=== PATIENT | male | born 1950 | race Caucasian/White ===

== ENCOUNTER 2017-02-05 21:15 | Emergency (ER) | payer OTHER ==
[2017-02-05 22:33] LABS: Hematocrit 42 % (42-52); Mean Corpuscular HGB Conc 34 g/dl (31-36); Mean Corpuscular Hemoglobin 32 pg (27-31); Mean Corpuscular Volume 96 fL (80-94); Mean Platelet Volume 8 um3 (7.4-10.4); Red Blood Count 4.34 10^6/ul (4.0-5.4); Red Cell Distribution Width 13 % (10.5-15); White Blood Count 6.6 10^3/ul (3.5-10.8)
--- NOTE | 2017-02-05 22:42 | RAD ---
INDICATION: Cough, shortness of breath, history of CHF. Atrial fibrillation. Asthma. COMPARISON: October 06, [address] TECHNIQUE: Dual energy PA and routine lateral views of the chest were obtained. REPORT: Elevated lung volumes and both mild coarsening and rarefaction of the interstitial markings. No alveolar consolidation, focal pulmonary lesion, pleural effusion, pneumothorax. RIGHT atrial, RIGHT ventricular, and coronary sinus level pacemaker leads. Negative for cardiomegaly. Prominent central pulmonary vasculature with peripheral attenuation concerning for potential pulmonary arterial hypertension. IMPRESSION: Stigmata of probable chronic obstructive pulmonary disease and potential pulmonary arterial hypertension. No acute cardiopulmonary process evident.
[2017-02-05 22:43] LABS: Urine Bacteria Absent (Absent); Urine Bilirubin Negative (Negative); Urine Glucose Negative (Negative); Urine Nitrite Negative (Negative)
[2017-02-05 22:58] LABS: ALT 30 U/L (7-52); AST 24 U/L (13-39); Albumin 3.9 g/dL (3.2-5.2); Alkaline Phosphatase 74 U/L (34-104); Anion Gap 9 mmol/L (2-11); BUN/Creatinine Ratio 16.9 (8-20); Blood Urea Nitrogen 14 mg/dL (6-24); C Reactive Protein < 1.00 mg/L (< 5.00); CO2 Carbon Dioxide 27 mmol/L (22-32); Calcium 8.8 mg/dL (8.6-10.3); Chloride 101 mmol/L (101-111); Creatine Kinase 140 U/L (10-223); EGFR African American 118.5 (>60); EGFR Non-African American 92.1 (>60); Globulin 3.1 g/dL (2-4); Glucose 102 mg/dL (70-100); Lipase 15 U/L (11.0-82.0); Potassium 3.9 mmol/L (3.5-5.0); Sodium 137 mmol/L (133-145)
[2017-02-05 23:06] LABS: Troponin I 0.08 ng/mL (<0.04)
[2017-02-05 23:07] LABS: TSH (Thyroid Stimulating Horm) 0.71 mcIU/mL (0.34-5.60)
[2017-02-05] MEDS ORDERED: Iohexol 350* (CONTRAST) 500 ML MDV IV ONE (23:14)
[2017-02-06 02:06] VITALS: BP 124/82
[2017-02-06] MEDS ORDERED: predniSONE TAB* 20 MG PO ONE (02:10)
--- NOTE | 2017-02-06 02:22 | ED ---
IRiaz,Medardo, scribed for Kris Mendez MD on 02/05/17 at 2158 . Shortness of Breath - HPI Summary HPI Summary: This 66 y/o male presents to ED for persistent SOB today. Pt reports dyspnea that he has been controlling cough and dyspnea with cough medication BID and albuterol puffer for the last 2-3 days. Pt reports worsening SOB after dinner at 1800 PM today. Positive scant sputum production. Negative CP. Daughters present at bedside expresses concern about mild edema at BLE and possible fluid retention. PMHx includes LBBB, afib s/p dual pacemaker placement, HTN, and asthma. - History of Current Complaint Chief Complaint: EDShortnessOfBreath Hx Obtained From: Patient, Medical Records Onset/Duration: Gradual Onset, Still Present Timing: Constant Dyspnea At: Rest Aggrevating Factors: Nothing Alleviating Factors: OTC Meds - cough medication Associated Signs & Symptoms: Cough (Productive) - scant sputum production, Edema - Allergy/Home Medications Allergies/Adverse Reactions: Allergies Allergy/AdvReac Type Severity Reaction Status Date / Time No Known Allergies Allergy Verified 10/06/14 20:16 PMH/Surg Hx/FS Hx/Imm Hx Cardiovascular History: Reports: Hx Atrial Fibrillation, Hx Hypercholesterolemia , Hx Hypertension Respiratory History: Reports: Hx Asthma Infectious Disease History: No Infectious Disease History: Denies: Traveled Outside the [place] in Last 30 Days - Family History Known Family History: Positive: Cardiac Disease - CHF to father in 80s. , Diabetes - positive to mother - Social History Lives: Alone Alcohol Use: Occasionally Hx Substance Use: No Substance Use Type: Reports: None Hx Tobacco Use: No Smoking Status (MU): Never Smoked Tobacco Review of Systems Negative: Fever Negative: Chest Pain Positive: Shortness Of Breath Positive: Diarrhea Positive: Edema - mild BLE Negative: Anxious, Depressed All Other Systems Reviewed And Are Negative: Yes Physical Exam Triage Information Reviewed: Yes Vital Signs On Initial Exam: Initial Vitals Temp Pulse Resp BP Pulse Ox 98.7 F 69 16 136/92 100 02/05/17 21:27 02/05/17 21:27 02/05/17 21:27 02/05/17 21:27 02/05/17 21:27 Vital Signs Reviewed: Yes Appearance: Positive: Well-Appearing, No Pain Distress Skin: Positive: Warm, Skin Color Reflects Adequate Perfusion, Dry Head/Face: Positive: Normal Head/Face Inspection Eyes: Positive: EOMI, DEANA Neck: Positive: Supple, Nontender Respiratory/Lung Sounds: Positive: Wheezes - expiratory whezzing Cardiovascular: Positive: Leg Edema Left - pitting edema, Leg Edema Right - pitting edema Abdomen Description: Positive: Nontender, No Organomegaly, Soft Musculoskeletal: Positive: Strength/ROM Intact Neurological: Positive: Sensory/Motor Intact, Alert, Oriented to Person Place, Time Psychiatric: Positive: Affect/Mood Appropriate AVPU Assessment: Alert Diagnostics - Vital Signs Vital Signs Temp Pulse Resp BP Pulse Ox 02/05/17 21:27 98.7 F 69 16 136/92 100 - Laboratory Lab Results: Lab Results 02/05/17 02/05/17 02/05/17 Range/Units 22:06 22:15 22:15 WBC 6.6 (3.5-10.8) 10^3/ul RBC 4.34 (4.0-5.4) 10^6/ul Hgb 14.0 (14.0-18.0) g/dl Hct 42 (42-52) % MCV 96 H (80-94) fL MCH 32 H (27-31) pg MCHC 34 (31-36) g/dl RDW 13 (10.5-15) % Plt Count 140 L (150-450) 10^3/ul MPV 8 (7.4-10.4) um3 Neut % (Auto) 69.0 (38-83) % Lymph % (Auto) 18.5 L (25-47) % [place] % (Auto) 7.4 (1-9) % Eos % (Auto) 4.4 (0-6) % Baso % (Auto) 0.7 (0-2) % Absolute Neuts (auto) 4.5 (1.5-7.7) 10^3/ul Absolute Lymphs (auto) 1.2 (1.0-4.8) 10^3/ul Absolute Monos (auto) 0.5 (0-0.8) 10^3/ul Absolute Eos (auto) 0.3 (0-0.6) 10^3/ul Absolute Basos (auto) 0 (0-0.2) 10^3/ul Absolute Nucleated RBC 0 10^3/ul Nucleated RBC % 0.1 INR (Anticoag Therapy) 3.17 H (0.89-1.11) APTT 42.9 H (26.0-36.3) seconds D-Dimer, Quantitative 365 H (Less Than 230) ng/mL Sodium (133-145) mmol/L Potassium (3.5-5.0) mmol/L Chloride (101-111) mmol/L Carbon Dioxide (22-32) mmol/L Anion Gap (2-11) mmol/L BUN (6-24) mg/dL Creatinine (0.67-1.17) mg/dL Est GFR ( Amer) (>60) Est GFR (Non-Af Amer) (>60) BUN/Creatinine Ratio (8-20) Glucose (70-100) mg/dL Lactic Acid (0.5-2.0) mmol/L Calcium (8.6-10.3) mg/dL Magnesium (1.9-2.7) mg/dL Total Bilirubin (0.2-1.0) mg/dL AST (13-39) U/L ALT (7-52) U/L Alkaline Phosphatase (34-104) U/L Total Creatine Kinase (10-223) U/L CK-MB (CK-2) (0.6-6.3) ng/mL Troponin I (<0.04) ng/mL C-Reactive Protein (< 5.00) mg/L B-Natriuretic Peptide ( - 100) pg/mL Total Protein (6.4-8.9) g/dL Albumin (3.2-5.2) g/dL Globulin (2-4) g/dL Albumin/Globulin Ratio (1-3) Lipase (11.0-82.0) U/L TSH (0.34-5.60) mcIU/mL Urine Color Straw Urine Appearance Clear Urine pH 5.0 (5-9) Ur Specific [place] 1.010 (1.010-1.030) Urine Protein Negative (Negative) Urine Ketones Negative (Negative) Urine Blood 2+ H (Negative) Urine Nitrate Negative (Negative) Urine Bilirubin Negative (Negative) Urine Urobilinogen Negative (Negative) Ur Leukocyte Esterase Negative (Negative) Urine WBC (Auto) Trace(0-5/hpf) (Absent) Urine RBC (Auto) Trace(0-2/hpf) (Absent) Urine Bacteria Absent (Absent) Urine Glucose Negative (Negative) 03/19/17 03/19/17 03/19/17 Range/Units 22:15 22:15 22:15 WBC (3.5-10.8) 10^3/ul RBC (4.0-5.4) 10^6/ul Hgb (14.0-18.0) g/dl Hct (42-52) % MCV (80-94) fL MCH (27-31) pg MCHC (31-36) g/dl RDW (10.5-15) % Plt Count (150-450) 10^3/ul MPV (7.4-10.4) um3 Neut % (Auto) (38-83) % Lymph % (Auto) (25-47) % [place] % (Auto) (1-9) % Eos % (Auto) (0-6) % Baso % (Auto) (0-2) % Absolute Neuts (auto) (1.5-7.7) 10^3/ul Absolute Lymphs (auto) (1.0-4.8) 10^3/ul Absolute Monos (auto) (0-0.8) 10^3/ul Absolute Eos (auto) (0-0.6) 10^3/ul Absolute Basos (auto) (0-0.2) 10^3/ul Absolute Nucleated RBC 10^3/ul Nucleated RBC % INR (Anticoag Therapy) (0.89-1.11) APTT (26.0-36.3) seconds D-Dimer, Quantitative (Less Than 230) ng/mL Sodium 137 (133-145) mmol/L Potassium 3.9 (3.5-5.0) mmol/L Chloride 101 (101-111) mmol/L Carbon Dioxide 27 (22-32) mmol/L Anion Gap 9 (2-11) mmol/L BUN 14 (6-24) mg/dL Creatinine 0.83 (0.67-1.17) mg/dL Est GFR ( Amer) 118.5 (>60) Est GFR (Non-Af Amer) 92.1 (>60) BUN/Creatinine Ratio 16.9 (8-20) Glucose 102 H (70-100) mg/dL Lactic Acid 0.9 (0.5-2.0) mmol/L Calcium 8.8 (8.6-10.3) mg/dL Magnesium 2.0 (1.9-2.7) mg/dL Total Bilirubin 0.60 (0.2-1.0) mg/dL AST 24 (13-39) U/L ALT 30 (7-52) U/L Alkaline Phosphatase 74 (34-104) U/L Total Creatine Kinase 140 (10-223) U/L CK-MB (CK-2) 3.7 (0.6-6.3) ng/mL Troponin I 0.08 H* (<0.04) ng/mL C-Reactive Protein < 1.00 (< 5.00) mg/L B-Natriuretic Peptide 37 ( - 100) pg/mL Total Protein 7.0 (6.4-8.9) g/dL Albumin 3.9 (3.2-5.2) g/dL Globulin 3.1 (2-4) g/dL Albumin/Globulin Ratio 1.3 (1-3) Lipase 15 (11.0-82.0) U/L TSH 0.71 (0.34-5.60) mcIU/mL Urine Color Urine Appearance Urine pH (5-9) Ur Specific [place] (1.010-1.030) Urine Protein (Negative) Urine Ketones (Negative) Urine Blood (Negative) Urine Nitrate (Negative) Urine Bilirubin (Negative) Urine Urobilinogen (Negative) Ur Leukocyte Esterase (Negative) Urine WBC (Auto) (Absent) Urine RBC (Auto) (Absent) Urine Bacteria (Absent) Urine Glucose (Negative) 02/06/ Range/Units 01:20 WBC (3.5-10.8) 10^3/ul RBC (4.0-5.4) 10^6/ul Hgb (14.0-18.0) g/dl Hct (42-52) % MCV (80-94) fL MCH (27-31) pg MCHC (31-36) g/dl RDW (10.5-15) % Plt Count (150-450) 10^3/ul MPV (7.4-10.4) um3 Neut % (Auto) (38-83) % Lymph % (Auto) (25-47) % [place] % (Auto) (1-9) % Eos % (Auto) (0-6) % Baso % (Auto) (0-2) % Absolute Neuts (auto) (1.5-7.7) 10^3/ul Absolute Lymphs (auto) (1.0-4.8) 10^3/ul Absolute Monos (auto) (0-0.8) 10^3/ul Absolute Eos (auto) (0-0.6) 10^3/ul Absolute Basos (auto) (0-0.2) 10^3/ul Absolute Nucleated RBC 10^3/ul Nucleated RBC % INR (Anticoag Therapy) (0.89-1.11) APTT (26.0-36.3) seconds D-Dimer, Quantitative (Less Than 230) ng/mL Sodium (133-145) mmol/L Potassium (3.5-5.0) mmol/L Chloride (101-111) mmol/L Carbon Dioxide (22-32) mmol/L Anion Gap (2-11) mmol/L BUN (6-24) mg/dL Creatinine (0.67-1.17) mg/dL Est GFR ( Amer) (>60) Est GFR (Non-Af Amer) (>60) BUN/Creatinine Ratio (8-20) Glucose (70-100) mg/dL Lactic Acid (0.5-2.0) mmol/L Calcium (8.6-10.3) mg/dL Magnesium (1.9-2.7) mg/dL Total Bilirubin (0.2-1.0) mg/dL AST (13-39) U/L ALT (7-52) U/L Alkaline Phosphatase (34-104) U/L Total Creatine Kinase (10-223) U/L CK-MB (CK-2) (0.6-6.3) ng/mL Troponin I 0.09 H* (<0.04) ng/mL C-Reactive Protein (< 5.00) mg/L B-Natriuretic Peptide ( - 100) pg/mL Total Protein (6.4-8.9) g/dL Albumin (3.2-5.2) g/dL Globulin (2-4) g/dL Albumin/Globulin Ratio (1-3) Lipase (11.0-82.0) U/L TSH (0.34-5.60) mcIU/mL Urine Color Urine Appearance Urine pH (5-9) Ur Specific [place] (1.010-1.030) Urine Protein (Negative) Urine Ketones (Negative) Urine Blood (Negative) Urine Nitrate (Negative) Urine Bilirubin (Negative) Urine Urobilinogen (Negative) Ur Leukocyte Esterase (Negative) Urine WBC (Auto) (Absent) Urine RBC (Auto) (Absent) Urine Bacteria (Absent) Urine Glucose (Negative) Result Diagrams: 02/05/17 22:15 02/05/17 22:15 Lab Statement: Any lab studies that have been ordered have been reviewed, and results considered in the medical decision making process. - Radiology CXR Xray Interpretation: No Acute Changes - Stigmata of probable chronic obstructive pulmonary disease and potential pulmonary arterial hypertension. No acute cardiopulmonary process evident. Radiology Interpretation Completed By: Radiologist - CT CTA Chest/Thorax CT Interpretation: No Acute Changes CT Interpretation Completed By: Radiologist - Additional Comments Diagnostic Additional Comments: Venous Doppler study -- No DVT in LLE. Re-Evaluation - Re-Evaluation First Eval Re-Evaluation Time: 00:59 Comment: MD in room to update pt on CTA chest/thorax, venous doppler study, and bloodwork results. Second Eval Re-Evaluation Time: 02:06 Comment: MD in room to update pt on repeat trop and discuss plan of care. Course/Dx - Course Assessment/Plan: WHEEZES ON EXAM. RX PREDNISONE. TROPONIN 0.08 WITH REPEAT OF 0.09. PATIENT STATES HIS SOB EPISODE TONIGHT DID NOT RESPOND TO HIS ALBUTEROL INHALER BYT, GOT BETTER WITH EMS NEBULIZER. DISCUSSED RESULTS AND ADMISSION TO [facility] VERSES DISCHARGE HOME AND F/U WITH HIS ACRDIOLOGIST. 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 WILL RETURN IF WORSE. DISCHARGE HOME STABLE. - Diagnoses Provider Diagnoses: COPD (chronic obstructive pulmonary disease), Dyspnea Discharge - Discharge Plan Condition: Stable Disposition: HOME Prescriptions: predniSONE TAB* [Deltasone TAB*] 40 mg PO DAILY #8 tab Patient Education Materials: COPD (Chronic Obstructive Pulmonary Disease) (ED) , Dyspnea (ED) Referrals: Duane Farmer MD [Primary Care Provider] - Additional Instructions: FOLLOW UP WITH YOUR DOCTOR. CALL TODAY FOR FOLLOW UP. TAKE THE PREDNISONE DIRECTED. RETURN TO THE EMERGENCY DEPARTMENT FOR ANY WORSENING OF YOUR CONDITION; CHEST PAIN, SHORTNESS OF BREATH, YOU FEEL ILL OR QUESTIONS OR CONCERNS. The documentation as recorded by the Riaz hernández Soohyun accurately reflects the service I personally performed and the decisions made by me, Kris Mendez MD.
--- NOTE | 2017-02-06 07:30 | RAD ---
HISTORY: Shortness of breath, positive d-dimer COMPARISONS: None TECHNIQUE: Multiple contiguous axial CT scans of the chest were obtained after the administration of nonionic intravenous contrast, timed to the pulmonary arterial phase of contrast enhancement.. Coronal and sagittal multiplanar reformations are also submitted for review. FINDINGS: NECK AND THYROID: The lower neck and thyroid are unremarkable. CHEST WALL: There is no lower cervical, axillary, or supraclavicular lymphadenopathy by size criteria. HEART AND PERICARDIUM: The heart is unremarkable. AORTA AND PULMONARY VASCULATURE: There is no pulmonary arterial filling defect to suggest pulmonary embolism. There is no linear filling defect within the aorta to suggest aortic dissection. MEDIASTINUM: There is no mediastinal lymphadenopathy by size criteria. RADHA: There is no hilar lymphadenopathy by size criteria. AIRWAY AND ESOPHAGUS: The airway is unremarkable, without endobronchial filling defect. The esophagus is grossly normal. LUNG PARENCHYMA: The lungs are clear. PLEURA: No pleural abnormalities are noted. UPPER ABDOMEN: The upper abdomen is unremarkable. BONES AND SOFT TISSUES: Mild degenerative changes are noted OTHER: A left-sided pacemaker is noted. IMPRESSION: NO PULMONARY ARTERIAL FILLING DEFECT TO SUGGEST PULMONARY EMBOLISM
--- NOTE | 2017-02-06 07:31 | RAD ---
HISTORY: Left lower extremity pain COMPARISONS: None relevant TECHNIQUE: Multiple transverse and longitudinal ultrasound images were obtained of the left lower extremity from the level of the common femoral vein inferiorly through to the infrapopliteal veins using grayscale, color Doppler, and spectral Doppler imaging with and without compression and with augmentation. Comparison images were obtained of the contralateral common femoral vein. FINDINGS: VEINS: The venous system of the left lower extremity is compressible throughout its course, with normal flow on color Doppler imaging and normal response to augmentation on spectral Doppler imaging. SOFT TISSUES: Unremarkable. OTHER FINDINGS: None. IMPRESSION: NO LEFT LOWER EXTREMITY DEEP VEIN THROMBOSIS
== END 2017-02-06 02:28 | disposition home or self-care (01) ==
LOC: ED 21:15
DX: J44.9 Chronic obstructive pulmonary disease, unspecified (principal); R05 Cough; R06.02 Shortness of breath; R19.7 Diarrhea, unspecified; R60.0 Localized edema; R06.00 Dyspnea, unspecified
CPT/HCPCS: 36415; 71020; 71275; 80053; 81003; 81015; 82550; 82553; 83605; 83690; 83735; 83880; 84443; 84484; 85025; 85379; 85610; 85730; 86140; 99283; J7512; Q9967

== ENCOUNTER 2019-05-08 15:32 | Emergency (ER) | payer MEDICARE ==
--- NOTE | 2019-05-08 17:16 | ED ---
HPI Cardiac - HPI Summary HPI Summary: This patient is a 68 year old M presenting to [facility] accompanied by his with a chief complaint of _ since _ The CC is described as _ The patient rates the pain _/10 in severity. Symptoms aggravated by _. Symptoms alleviated by _. Patient reports Patient denies PMHx of - History of Current Complaint Chief Complaint: EDDysrhythmPalp Stated Complaint: DIFBULATOR GOING OFF PER PT Time Seen by Provider: 05/08/19 17:01 Pain Intensity: 0 - Allergy/Home Medications Allergies/Adverse Reactions: Allergies Allergy/AdvReac Type Severity Reaction Status Date / Time No Known Allergies Allergy Verified 05/08/19 15:40 Home Medications: Home Medications Atorvastatin* [Lipitor*] 40 mg PO QPM 05/08/19 [History Confirmed 05/08/19] Budesonide/Formote 80/4.5(NF) [Symbicort 80/4.5 (NF)] 1 puff INH BID 05/08/19 [ History Confirmed 05/08/19] Finasteride TAB* [Proscar TAB*] 5 mg PO DAILY 05/08/19 [History Confirmed ] Metoprolol Succinate 100 mg PO DAILY 05/08/19 [History Confirmed 05/08/19] Ramipril 5 mg PO DAILY 05/08/19 [History Confirmed 05/08/19] Tamsulosin CAP* [Flomax CAP*] 0.4 mg PO DAILY 05/08/19 [History Confirmed ] Warfarin Sodium [Jantoven] 2.5 mg PO DAILY 05/08/19 [History Confirmed 05/08/19] PMH/Surg Hx/FS Hx/Imm Hx Endocrine/Hematology History: Denies: Hx Diabetes Cardiovascular History: Reports: Hx Atrial Fibrillation, Hx Hypercholesterolemia , Hx Hypertension, Hx Pacemaker/ICD Respiratory History: Reports: Hx Asthma History: Denies: Hx Dialysis, Hx Renal Disease - Surgical History Surgery Procedure, Year, and Place: CARDIAC-defib 04/2016, appendectomy,tonsils - Immunization History Immunizations Up to Date: Yes Infectious Disease History: No Infectious Disease History: Denies: Traveled Outside the [place] in Last 30 Days - Family History Known Family History: Positive: Cardiac Disease - CHF to father in 80s. , Diabetes - positive to mother - Social History Alcohol Use: Occasionally Hx Substance Use: No Substance Use Type: Reports: None Hx Tobacco Use: No Smoking Status (MU): Never Smoked Tobacco Physical Exam Vital Signs On Initial Exam: Initial Vitals Temp Pulse Resp BP Pulse Ox 97.9 F 121 18 111/80 94 05/08/19 15:37 05/08/19 15:37 05/08/19 15:37 05/08/19 15:37 05/08/19 15:37 Diagnostics - Vital Signs Vital Signs Temp Pulse Resp BP Pulse Ox 05/08/19 15:37 97.9 F 121 18 111/80 94 - Laboratory Lab Statement: Any lab studies that have been ordered have been reviewed, and results considered in the medical decision making process. Discharge - Discharge Plan Referrals: Duane Farmer MD [Primary Care Provider] - - Attestation Statements Document Initiated by Scribe: Yes
--- NOTE | 2019-05-08 17:20 | ED ---
Palpitations / Dysrhythmia - HPI Summary HPI Summary: This patient is a 68 year old M presenting to [facility] accompanied by his with a chief complaint of his defibrillator/pacemaker turning off since a few hours ago. The patient rates the pain 0/10 in severity. Symptoms aggravated by nothing. Symptoms alleviated by nothing. The patient was exercising on an elliptical today when his implanted defibrillator went off twice. Following this , the patient lied down on his bed. He and his called Dr. Pro, who told the patient to go to the ED. Patient has a history of a-fib. Patient denies dizziness, SOB, CP. He will see his personal development coach next week. - History of Current Complaint Chief Complaint: EDDysrhythmPalp Time Seen by Provider: 05/08/19 17:01 Hx Obtained From: Patient, Family/Bag Liner - Onset/Duration: Sudden Onset, Lasting Hours, Still Present Severity Currently: None Character: Irregular Aggravating: Nothing Alleviating: Nothing - Allergy/Home Medications Allergies/Adverse Reactions: Allergies Allergy/AdvReac Type Severity Reaction Status Date / Time No Known Allergies Allergy Verified 05/08/19 15:40 Home Medications: Home Medications Atorvastatin* [Lipitor*] 40 mg PO QPM 05/08/19 [History Confirmed 05/08/19] Budesonide/Formote 80/4.5(NF) [Symbicort 80/4.5 (NF)] 1 puff INH BID 05/08/19 [ History Confirmed 05/08/19] Finasteride TAB* [Proscar TAB*] 5 mg PO DAILY 05/08/19 [History Confirmed ] Metoprolol Succinate 100 mg PO DAILY 05/08/19 [History Confirmed 05/08/19] Ramipril 5 mg PO DAILY 05/08/19 [History Confirmed 05/08/19] Tamsulosin CAP* [Flomax CAP*] 0.4 mg PO DAILY 05/08/19 [History Confirmed ] Warfarin Sodium [Jantoven] 2.5 mg PO DAILY 05/08/19 [History Confirmed 05/08/19] PMH/Surg Hx/FS Hx/Imm Hx Previously Healthy: No Endocrine/Hematology History: Denies: Hx Diabetes Cardiovascular History: Reports: Hx Atrial Fibrillation, Hx Hypercholesterolemia , Hx Hypertension, Hx Pacemaker/ICD Respiratory History: Reports: Hx Asthma History: Denies: Hx Dialysis, Hx Renal Disease - Surgical History Surgical History: Yes Surgery Procedure, Year, and Place: CARDIAC-defib 04/2016, appendectomy,tonsils - Immunization History Immunizations Up to Date: Yes Infectious Disease History: No Infectious Disease History: Denies: Traveled Outside the [place] in Last 30 Days - Family History Known Family History: Positive: Cardiac Disease - CHF to father in 80s. , Diabetes - positive to mother - Social History Alcohol Use: Occasionally Hx Substance Use: No Substance Use Type: Reports: None Hx Tobacco Use: No Smoking Status (MU): Never Smoked Tobacco Do You Chew or Dip Tobacco: No Have You Chewed or Dipped Tobacco in the LAST YEAR: No Have You Smoked in the Last Year: No Review of Systems Cardiovascular: Other - defibrillator turning off Negative: Chest Pain Negative: Shortness Of Breath Neurological: Other - negative - dizziness All Other Systems Reviewed And Are Negative: Yes Physical Exam - Summary Physical Exam Summary: VITAL SIGNS: Reviewed. GENERAL: Patient is a well-developed and nourished MALE who is lying comfortable in the stretcher. Patient is not in any acute respiratory distress. HEAD AND FACE: No signs of trauma. No ecchymosis, hematomas or skull depressions. No sinus tenderness. EYES: PERRLA, EOMI x 2, No injected conjunctiva, no nystagmus. EARS: Hearing grossly intact. Ear canals and tympanic membranes are within normal limits. MOUTH: Oropharynx within normal limits. NECK: Supple, trachea is midline, no adenopathy, no JVD, no carotid bruit, no c- spine tenderness, neck with full ROM. CHEST: Symmetric, no tenderness at palpation LUNGS: Clear to auscultation bilaterally. No wheezing or crackles. CVS: Regular rate and rhythm, S1 and S2 present, no murmurs or gallops appreciated. ABDOMEN: Soft, non-tender. No signs of distention. No rebound no guarding, and no masses palpated. Bowel sounds are normal. EXTREMITIES: FROM in all major joints, no edema, no cyanosis or clubbing. NEURO: Alert and oriented x 3. No acute neurological deficits. Speech is normal and follows commands. SKIN: Dry and warm. Triage Information Reviewed: Yes Vital Signs On Initial Exam: Initial Vitals Temp Pulse Resp BP Pulse Ox 97.9 F 121 18 111/80 94 06/19/19 15:37 05/08/19 15:37 05/08/19 15:37 05/08/19 15:37 05/08/19 15:37 Vital Signs Reviewed: Yes Diagnostics - Vital Signs Vital Signs Temp Pulse Resp BP Pulse Ox 05/08/19 15:37 97.9 F 121 18 111/80 94 - Laboratory Result Diagrams: 05/08/19 17:33 05/08/19 17:33 Lab Statement: Any lab studies that have been ordered have been reviewed, and results considered in the medical decision making process. - Radiology CXR Radiology Interpretation Completed By: Radiologist Summary of Radiographic Findings: No radiographic evidence for acute cardiopulmonary abnormality on this portable chest x-ray. ED physician has reviewed this radiology report. - EKG 1755 Cardiac Rate: Tachycardia - 120 BPM Summary of EKG Findings: 1755 - pacemaker rhythm, 120 BPM Course/Dx - Course Assessment/Plan: This patient is a 68 year old M presenting to [facility] accompanied by his with a chief complaint of his defibrillator/pacemaker turning off since a few hours ago. The patient rates the pain 0/10 in severity. Symptoms aggravated by nothing. Symptoms alleviated by nothing. The patient was exercising on an elliptical today when his implanted defibrillator went off twice. Following this, the patient lied down on his bed. He and his called Dr. Pro, who told the patient to go to the ED. Patient has a history of a- fib. Patient denies dizziness, SOB, CP. He will see his personal development coach next week. Past medical history significant for atrial fibrillation on Coumadin, hypertension, dyslipidemia, and BPH. In the ED course the patient was placed in a monitor worker, IV access obtained, labs and a chest x-ray was ordered. Blood work without any significant abnormality except for platelets of 122, glucose of 103, CPK of 47. CXR IMPRESSION: No radiographic evidence for acute cardiopulmonary abnormality on this portable chest x-ray. Patient is resting comfortably with no complaints. At this time we are waiting for the interrogation therefore the patient will be signed out to Dr. Encinas at shift change. - Diagnoses Provider Diagnoses: Defibrillator discharge Discharge - Sign-Out/Discharge Documenting (check all that apply): Sign-Out Patient Signing out patient TO: Vernon Encinas - Patient is a sign-out at shift change pending workup for defibrillator and disposition. Patient Received Moderate/Deep Sedation with Procedure: No - Discharge Plan Condition: Stable Disposition: HOME Patient Education Materials: Tachycardia (ED) Referrals: Daniele Gorman MD [Medical Doctor] - Duane Farmer MD [Primary Care Provider] - () Additional Instructions: Increase metoprolol to 150mg instead of 100mg. Dr. Gorman's nurse will contact you for appointment next week Return to ED if symptoms reoccur. No exertion, no sports, no gym. - Billing Disposition and Condition Condition: STABLE Disposition: Home - Attestation Statements Document Initiated by Scribe: Yes Documenting Scribe: Washington Christina Provider For Whom Scribe is Documenting (Include Credential): Dr. Mike Pablo MD Scribe Attestation: Washington Griggs scribed for Dr. Mike Pablo MD on 05/11/19 at 0741. Scribe Documentation Reviewed: Yes Provider Attestation: The documentation as recorded by the Washington hernández accurately reflects the service I personally performed and the decisions made by me, Dr. Mike Pablo MD Status of Scribe Document: Viewed
[2019-05-08 17:58] LABS: ABS Eosinophils 0.2 10^3/ul (0-0.6); ABS Lymphocytes 1.3 10^3/ul (1.0-4.8); ABS Monocytes 0.7 10^3/ul (0-0.8); ABS Neutrophils 5.5 10^3/ul (1.5-7.7); Eosinophil % 2.4 %; Hematocrit 46 % (42-52); Hemoglobin 15.3 g/dL (14.0-18.0); Lymphocyte % 16.9 %; Mean Corpuscular HGB Conc 33 g/dL (31-36); Mean Corpuscular Hemoglobin 33 pg (27-31); Mean Corpuscular Volume 98 fL (80-94); Mean Platelet Volume 8.6 fL (7.4-10.4); Platelet Count 122 10^3/uL (150-450); Red Blood Count 4.68 10^6 /uL (4.18-5.48); Red Cell Distribution Width 14 % (10-15); White Blood Count 7.8 10^3/uL (3.5-10.8)
[2019-05-08 18:09] LABS: ALT 36 U/L (7-52); AST 31 U/L (13-39); Albumin 4.1 g/dL (3.2-5.2); Albumin/Globulin Ratio 1.4 (1-3); Alkaline Phosphatase 65 U/L (34-104); Anion Gap 6 mmol/L (2-11); BUN/Creatinine Ratio 16.8 (8-20); Blood Urea Nitrogen 18 mg/dL (6-24); CO2 Carbon Dioxide 28 mmol/L (22-32); Calcium 9.4 mg/dL (8.6-10.3); Chloride 105 mmol/L (101-111); Creatine Kinase 407 U/L (10-223); EGFR African American 82.7 (>60); EGFR Non-African American 68.3 (>60); Glucose 103 mg/dL (70-100); Magnesium 2.1 mg/dL (1.9-2.7); Sodium 139 mmol/L (135-145); Total Protein 7.1 g/dL (6.4-8.9)
[2019-05-08 18:12] LABS: CKMB ng/mL 6.2 ng/mL (0.6-6.3)
[2019-05-08 18:16] LABS: Troponin I 0.05 ng/mL (<0.04)
[2019-05-08 18:48] LABS: Urine Appearance Cloudy; Urine Bacteria Absent (Absent); Urine Bilirubin Negative (Negative); Urine Blood 2+ (Negative); Urine Color Yellow; Urine Glucose Negative (Negative); Urine Ketones Negative (Negative); Urine Nitrite Negative (Negative); Urine Protein Negative (Negative); Urine Red Blood Cell 2+(6-10/hpf) (Absent); Urine Urobilinogen Negative (Negative); Urine White Blood Cell Trace(0-5/hpf) (Absent)
--- NOTE | 2019-05-08 19:09 | ED ---
Progress - Progress Note Progress Note: This patient was signed out from Dr. Pablo to Dr. Encinas upon shift change at 19: 00 05/08/19 pending fixing his defibrillator/pacemaker. Discussed case with Dr. Gorman, who stated that the patient can go home if he wants to go home and his nurse will contact the patient tomorrow to make an appointment next week, and he recommended increasing Lopressor from 100 to 150mg. The patient will be discharged home, was instructed to not exercise and to return to the ED if his symptoms reoccur. He is agreeable with this plan. Re-Evaluation - Re-Evaluation First Eval Re-Evaluation Time: 19:48 Change: Unchanged Comment: Discussed results and plan Course/Dx - Course Course Of Treatment: This patient was signed out from Dr. Pablo to Dr. Encinas upon shift change at 19:00 05/08/19 pending fixing his defibrillator/pacemaker. Discussed case with Dr. Gorman, who stated that the patient can go home if he wants to go home and his nurse will contact the patient tomorrow to make an appointment next week, and he recommended increasing Lopressor from 100 to 150mg. The patient will be discharged home, was instructed to not exercise and to return to the ED if his symptoms reoccur. He is agreeable with this plan. - Diagnoses Provider Diagnoses: Ventricular tachycardia Discharge - Sign-Out/Discharge Documenting (check all that apply): Patient Departure - DC, Receiving Sign-Out Receiving patient FROM: Mike Samy Patient Received Moderate/Deep Sedation with Procedure: No - Discharge Plan Condition: Stable Disposition: HOME Patient Education Materials: Tachycardia (ED) Referrals: Duane Farmer MD [Primary Care Provider] - () Daniele Gorman MD [Medical Doctor] - Additional Instructions: Increase metoprolol to 150mg instead of 100mg. Dr. Gorman's nurse will contact you for appointment next week Return to ED if symptoms reoccur. No exertion, no sports, no gym. - Billing Disposition and Condition Condition: STABLE Disposition: Home - Attestation Statements Document Initiated by Scribe: Yes Documenting Scribe: Alexandre De Souza Provider For Whom Scribe is Documenting (Include Credential): Vernon Encinas MD Scribe Attestation: I, Alexandre De Souza, scribed for Vernon Encinas MD on 05/09/19 at 0637. Scribe Documentation Reviewed: Yes Provider Attestation: The documentation as recorded by the yanibAlexandre flores accurately reflects the service I personally performed and the decisions made by me, Vernon Encinas MD Status of Scribe Document: Viewed Consult Consult: At 20:[address] Gorman, who stated that the patient can go home if he wants to go home and his nurse will contact the patient tomorrow to make an appointment next week, and he recommended increasing Lopressor from 100 to 150mg.
[2019-05-08 19:21] LABS: TSH (Thyroid Stimulating Horm) 0.94 mcIU/mL (0.34-5.60)
[2019-05-08] MEDS ORDERED: Metoprolol Succinate XL TAB* 100 MG PO ONE (19:54)
[2019-05-08] MEDS ORDERED: Metoprolol Tartrate TAB* 50 mg PO ONE (20:03)
[2019-05-08 20:52] LABS: Activated Partial Thrombo Time 48.3 seconds (26.0-38.0); INR 2.91 (0.82-1.09)
[2019-05-08 21:18] VITALS: BP 138/101
== END 2019-05-08 21:15 | disposition home or self-care (01) ==
LOC: ED 15:32
DX: T82.897A Other specified complication of cardiac prosthetic devices, implants and grafts, initial encounter (principal); I48.91 Unspecified atrial fibrillation; I10 Essential (primary) hypertension; Z79.01 Long term (current) use of anticoagulants; Z79.899 Other long term (current) drug therapy
CPT/HCPCS: 36415; 71045; 80053; 81003; 81015; 82550; 82553; 83605; 83735; 84443; 84484; 85025; 85610; 85730; 87086; 93005; 99284; A9270-GY

== ENCOUNTER 2019-12-03 06:26 | Day surgery (SDC) | payer MEDICARE ==
--- OUTSIDE RECORDS SUMMARY | 2019-12-03 06:33 | XMS REPORT | Summary of Care ---
:1950 Author Organization [facility] Address [address] [address] Care Team Providers Name Role Phone MarlenyDuane quesada Primary Care Provider Reason for Visit Reason Comments Follow Up follow up post PVI Encounter Details Date Type Department Care Team Description 10/14/2019 Office Visit [facility] Lennox Pro, PAF (paroxysmal atrial fibrillation) (HCC) (Primary Dx); 1 Justino Moore MD Nonischemic cardiomyopathy; [address] [phone] 1 JUSTINO MOORE Essential hypertension; [phone] [address] [id number] Coronary artery disease involving alturas coronary artery of alturas heart without angina pectoris; [phone] LBBB (left bundle branch block) Allergies Active Allergy Reactions Severity Noted Date Comments Environmental Respiratory Reaction 05/16/2019 Eplerenone Rash 02/28/2017 documented as of this encounter (statuses as of 10/16/2019) Medications Medication Sig Dispensed Refills Start Date End Date Status Multiple Vitamin Take 1 Tab by 0 Active (MULTI-VITAMIN DAILY mouth DAILY. PO) albuterol HFA (PROAIR Take 2 Puffs by 3 Inhaler 0 09/14/2015 Active HFA) 108 (90 BASE) inhalation EVERY MCG/ACT Inhalation Aero SIX HOURS Soln NEEDED (asthma). Tamsulosin HCl (FLOMAX) Take 0.4 mg by 0 Active 0.4 MG Oral Cap mouth DAILY. Spacer/Aero-Holding 1 Each by Does 1 Each 0 08/14/2018 Active Chambers Does not apply not apply route Device DIRECTED. finasteride (PROSCAR) 5 TAKE 1 TABLET 90 Tab 3 11/06/2018 Active MG Oral Tab DAILY atorvastatin (LIPITOR) TAKE 1 TABLET 90 Tab 3 11/28/2018 Active 40 MG Oral DAILY TabIndications: Coronary artery disease involving alturas coronary artery of alturas heart without angina pectoris ramipril (ALTACE) 5 MG Take 1 Cap by 90 Cap 3 04/30/2019 Active Oral Cap mouth DAILY. metoprolol succinate Take 0.5 Tabs by 3 06/13/2019 Active (TOPROL XL) 100 MG Oral mouth TWICE TABLET SR 24 DAILY. HRIndications: NICM (nonischemic cardiomyopathy) (HCC) warfarin (JANTOVEN) 2.5 Take 3-4 Tabs by 280 Tab 3 07/17/2019 Active MG Oral TabIndications: mouth DAILY. 10mg Persistent atrial Mon/Mon/Mon and fibrillation 7.5mg rest of week budesonide-formoterol Take 2 INHL by 30.6 g 1 08/14/2019 Active fumarate (SYMBICORT) inhalation TWICE 80-4.5 MCG/ACT DAILY. Inhalation Aerosol dofetilide (TIKOSYN) Take 1 Cap by 180 Cap 3 08/22/2019 Active 250 MCG Oral mouth EVERY CapIndications: TWELVE HOURS. Paroxysmal atrial fibrillation (HCC) Cholecalciferol Take 2,000 Units 0 Active (VITAMIN D3 PO) by mouth DAILY. documented as of this encounter (statuses as of 10/16/2019) Active Problems Problem Noted Date Decompensated chronic obstructive pulmonary disease 08/14/2018 Chronic systolic heart failure 10/27/2016 PAF (paroxysmal atrial fibrillation) 10/24/2016 Essential hypertension 10/24/2016 Persistent atrial fibrillation 05/26/2016 senior living current use of anticoagulant therapy 05/26/2016 Overview: Managed by: to establish with [facility] 05/27/16 Anticoagulant: Warfarin Start of Anticoagulant: 05/26/16 Referred by: Yris Indication: Afib Target Range: 2.0-3.0 Duration: Not Determined Additional factors influencing anticoagulation: CHADS2 score of 2 for hypertension, LV dysfunction [id number] score of 3 for age > 65, hypertension, LV dysfunction Aspirin increases bleeding risk Spironolactone decreases warfarin effect Initial Referral: 05/26/16, 06/2017, 08/2018 Initial ACS: 05/26/16, 08/16/17, 09/17/18 Nonischemic cardiomyopathy 03/09/2016 Coronary artery disease involving alturas coronary artery of alturas heart 09/07 without angina pectoris Overview: Nonobstructive by cath in [place] 2008 (30% prox LAD, 40-50% PL). LBBB (left bundle branch block) A-fib Overview: Dx in [place] but told not to worry about it Other and unspecified hyperlipidemia Hypertension documented as of this encounter (statuses as of 10/16/2019) Immunizations Name Administration Dates Next Due PNEUMOCOCCAL POLYSACCHARIDE VACCINE 08/14/2018 Pneumococcal Conjugate Vaccine 07/31/2017 documented as of this encounter Social History Tobacco Use Types Packs/Day Years Used Date Never Smoker Smokeless Tobacco: Never Used Alcohol Use Drinks/Week oz/Week Comments Yes 2 Cans of beer 2.0 occasional Sex Assigned at Date Recorded Not on file Job Start Date Occupation Industry Not on file Not on file Not on file Travel History Travel Start Travel End No recent travel history available. documented as of this encounter Last Filed Vital Signs Vital Sign Reading Time Taken Comments Blood Pressure 120/72 10/14/2019 3:07 PM EST Pulse 70 10/14/2019 3:07 PM EST Temperature - - Respiratory Rate - - Oxygen Saturation - - Inhaled Oxygen Concentration - - Weight 99.3 kg (218 lb 14.4 oz) 10/14/2019 3:07 PM EST Height 175.3 cm (5' 9") 10/14/2019 3:07 PM EST Body Mass Index 32.33 10/14/2019 3:07 PM EST documented in this encounter Progress Notes Scooby Garibay MD - 10/14/2019 2:40 PM EST PATIENT: Kris Dias : 1950 DATE OF SERVICE: 10/14/2019 REFERRING PRACTITIONER: Self-Referred PRIMARY CARE PROVIDER: Duane Farmer CHIEF COMPLAINT: Chief Complaint Patient presents with Follow Up follow up post PVI HISTORY OF PRESENT ILLNESS: Kris Dias is a 69-y.o. male who returns for cardiological follow-up after his last visit with Dr. Pro. He had his PVI in May 2019 and he has been AF/AFL free (based on most recent recentpacemaker interrogation. He is taking 15-20 brisk walks 3-4 times per week. Denies fatigue, chest pain, n/v, diaphoresis, orthopnea. Mild edema. He is tolerating his Tikosyn but is worried since he was recently notified about a Tikosyn shortage.He and his wonders how long he would need to take the Tikosyn and if another medication needs to be started in case he no longer has access to Tikosyn. Current Outpatient Medications Medication Sig albuterol HFA (PROAIR HFA) 108 (90 BASE) MCG/ACT Inhalation Aero Soln Take 2 Puffs by inhalation EVERY SIX HOURS NEEDED (asthma). atorvastatin (LIPITOR) 40 MG Oral Tab TAKE 1 TABLET DAILY budesonide-formoterol fumarate (SYMBICORT) 80-4.5 MCG/ACT Inhalation Aerosol Take 2 INHL by inhalation TWICE DAILY. Cholecalciferol (VITAMIN D3 PO) Take 2,000 Units by mouth DAILY. dofetilide (TIKOSYN) 250 MCG Oral Cap Take 1 Cap by mouth EVERY TWELVE HOURS. finasteride (PROSCAR) 5 MG Oral Tab TAKE 1 TABLET DAILY metoprolol succinate (TOPROL XL) 100 MG Oral TABLET SR 24 HR Take 0.5 Tabs by mouth TWICE DAILY. Multiple Vitamin (MULTI-VITAMIN DAILY PO) Take 1 Tab by mouth DAILY. ramipril (ALTACE) 5 MG Oral Cap Take 1 Cap by mouth DAILY. Spacer/Aero-Holding Chambers Does not apply Device 1 Each by Does not apply route DIRECTED. Tamsulosin HCl (FLOMAX) 0.4 MG Oral Cap Take 0.4 mg by mouth DAILY. warfarin (JANTOVEN) 2.5 MG Oral Tab Take 3-4 Tabs by mouth DAILY. 10mg Mon/Wed/Fri and 7.5mg rest of week No current facility-administered medications for this visit. Facility-Administered Medications Ordered in Other Visits Medication perflutren lipid microsphere (DEFINBook of Odds) injection 1.5 mL Allergies Allergen Reactions Environmental Respiratory Reaction Eplerenone Rash REVIEW OF SYSTEMS: All remaining review of systems was negative except for as noted in the history of present illness/subjective. PHYSICAL EXAMINATION: VITALS: BP 120/72 (BP Location: Left arm, Patient Position: Sitting) | Pulse 70 | Ht 5' 9" (1.753m) | Wt 218 lb 14.4 oz (99.3 kg) | BMI 32.33 kg/m GENERAL: alert, oriented, no acute distress, appears stated age. SKIN: warm and dry, no xanthomas. and normal, no rashes or abnormalities noted. HEENT: head is atraumatic and normocephalic, mucous membranes moist NECK: no mass, no adenopathy, no thyromegaly and no jugular venous distention. LUNGS: clear to auscultation bilaterally, no rales, no wheezing, or ronchi. HEART: Normal rate, regular rhythm, normal S1/S2, no murmurs/rubs/gallops, PMI nondisplaced. ABDOMEN: soft, non tender, without masses or organomegaly. EXTREMITIES: no clubbing, cyanosis, or edema, radial and DP pulses 2+ bilaterally. NEUROLOGICAL: grossly intact and moves all extremites well DIAGNOSTIC STUDIES: EKG: AV-paced rhythm IMPRESSION: ICD-9-CM ICD-10-CM 1. PAF (paroxysmal atrial fibrillation) ([facility]) 427.31 I48.0 2. Nonischemic cardiomyopathy 425.4 I42.8 3. Essential hypertension 401.9 I10 4. Coronary artery disease involving alturas coronary artery of alturas heart without angina pectoris 414.01 I25.10 5. LBBB (left bundle branch block) 426.3 I44.7 PLAN: 1. Paroxysmal atrial fibrillation Anticoagulation: Warfarin Rate-control: Toprol XL Rhythm-control: Tikosyn 250 mcg BID Patient has returned to normal sinus rhythm and had 0% AF/AFL burden during most recent pacemaker/ICD interrogation in 07/2019. Plan to continue Tikosyn for the time being. Follow-up in 3-4 months to reassess Tikosyn therapy. 2. Nonischemic cardiomyopathy LVEF: 55-60% on TTE 10/14/2019 Beta-herminia: Toprol XL 50 mg daily ACEi/ARB: Ramipril 5 mg daily Mineralocorticoid antagonist: None Entresto: No LVEF has normalized since PVI in May. This is a significant improvement compared to TTE on March 2019(LVEF 40-45%). 3. CAD 4. Essential hypertension 5. LBBB Author: Scooby Garibay MD 10/14/2019 15:12 documented in this encounter Plan of Treatment Date Type Specialty Care Team Description 10/16/2019 Office Visit Audiology Mikey Driscoll AuD Arrived [address] [id number] 10/16/2019 Office Visit Audiology Mikey Driscoll, [place] Arrived [address] [address] 10/21/2019 Lab Internal Medicine 11/11/2019 AntiCoag Anticoagulation 12/03/2019 [facility] Arrhythmia [facility] 01/14/2020 Office Visit Cardiology Guillermo Colin NP [address] [address] 02/24/2020 Office Visit Cardiology Daniele Gorman MD [address] [place] [address] [phone] 04/02/2020 [facility] Arrhythmia Center Health Maintenance Due Date Last Done Comments HIV SCREENING 1965 ZOSTER IMMUNIZATION SERIES 1998 (1 of 2) MEDICARE ANNUAL WELLNESS 08/14/2019 08/14/2018, 07/31/2017, VISIT 09/02/2015, Additional history exists LIPID DISORDER SCREENING 11/28/2019 11/28/2018, 08/14/2018, 08/30/2017, Additional history exists DEPRESSION SCREENING 10/14/2020 10/14/2019 FALL RISK ASSESSMENT 10/14/2020 10/14/2019, 10/14/2019 INFLUENZA VACCINE (#1) 2020 Postponed from 07/21/2019 (Patient refused) Colonoscopy 10/04/2022 10/04/2017, 10/04/2017, 02/02/2013 PNEUMOCOCCAL 65+YRS Completed 08/14/2018, 07/31/2017 HPV IMMUNIZATION SERIES Aged Out No longer eligible based on patient's age to complete this topic MENINGOCOCCAL VACCINE IMM Aged Out No longer eligible based on patient's age to complete this topic documented as of this encounter Goals Goal Patient Goal Associated Recent Patient-Stated? Author Type Problems Progress Blood Pressure Blood Pressure 120/72 No Marleny, < 150/90 (10/14/2019 MD Duane 3:07 PM EST) Note: This is an individualized treatment (blood pressure) goal for Kris Dias : Displayed above (on the left) is your goal for blood pressure control. Your most recent blood pressure is also shown above, on the right. You should try to achieve blood pressures that are lower than your goal listed above (on the left). Weight increase vs. 18 mo min CHF 4.9 (10/14/2019 3:07 PM EST) No Duane Farmer MD (lbs) < 5 Note: This is an individualized treatment (congestive heart failure, CHF) goal for Kris Dias: Displayed above (on the right) is how many pounds you are in excess of your lowest weight over the past 18 months. Note that lower numbers are better. Excessive weight gain often indicates fluid reten tion and worsening heart failure. You should contact your doctor immediately if the above number is too high (above your goal, the number on the left). Consume a [id number] diet Lifestyle No Duane Farmer MD Note: This is an individualized lifestyle goal for Kris Dias: Please do not add additional salt to your food. Additional salt may lead to fluid retention and worsen your congestive heart failure. Keep immunizations current Lifestyle No Duane Farmer MD Note: This is an individualized lifestyle goal for Kris Dias: Please be sure to keep up-to-date on recommended immunizations. For example, this would include a yearly influenza vaccine. Immunization status can be seen by looking at the Health Maintenance sections of your e[employer], Plan of Care, and any After Visit Summaries. Take all prescribed medications as directed Self-management No Duane Farmer MD Note: This is an individualized self-management goal for Kris Dias: Please take all prescribed medications as directed. 1. Do not skip doses. If you cannot afford your medications, talk with your doctor. 2. Use a pill reminder system such as a pill box if needed. Your pharmacist can help you with this. 3. Contact your Pharmacy 5 days before your medication runs out. If you cannot take your medications for any reasons, talk with your doctor. 4. Please bring all of your medication bottles and inhalers (or a list of all your medications/inhalers) with you to every visit. Potential barriers to meeting all of your care plan goals will continue to be addressed on an ongoing basis. Check your weight daily Self-management Duane Melendze MD Note: This is an individualized self-management goal for Kris Dias: Please check your weight daily. Refer to the accompanying CHF treatment goal and call your doctor immediately for further instructions on how to respond to unexpected weight gain. documented as of this encounter Implants Implanted Type Area Foreign Collection Clerk Device Shelf Model / Identifier Expiration Serial / Date Lot Compia Mri Quad Waste Treatment Operator-D Surescan Left: [employer] [id number] / Implanted: Qty: 1 on 10/26/2016 by Lennox Pro MD at [facility] [id number] / Capsurefix Lead 4076-52cm Left: [employer] 4076-52CM / Implanted: Qty: 1 on 10/26/2016 by Lennox Pro MD at [facility] [id number] / Sprint Quattro Icd Lead 6935m-62cm Left: [employer] [id number] / Implanted: Qty: 1 on 10/26/2016 by Lennox Pro MD at [facility] [id number] / Attain Performa Lead 4598-88cm Left: [employer] [id number] / Implanted: Qty: 1 on 10/26/2016 by Lennox Pro MD at [facility] [id number] / documented as of this encounter Results Not on filedocumented in this encounter Visit Diagnoses Diagnosis PAF (paroxysmal atrial fibrillation) (HCC) - Primary Atrial fibrillation Nonischemic cardiomyopathy Other primary cardiomyopathies Essential hypertension Unspecified essential hypertension Coronary artery disease involving alturas coronary artery of alturas heart without angina pectoris LBBB (left bundle branch block) Other left bundle branch block documented in this encounter Insurance Payer Benefit Plan / Subscriber ID Effective Dates Phone Address Type Group AETNA MEDICARE AETNA MEDICARE xxxxxxxx 2017-Present [employer] ADVANTAGE ADVANTAGE Guarantor Name Account Type Relation to Date of Phone Billing Address Patient Kris Dias Personal/Famil 1950 [address]) [address] [phone] [place], [place] (Work) [id number] documented as of this encounter Advance Directives Code Status Date Activated Date Inactivated Comments Full Code 06/10/2019 1:57 PM Does the patient have decision making Yes capacity? Order was discussed with: Unable to determine at this time I discussed all options and Unable to determine at this time (full patient/surrogate requested and agreed to: code until choice is made and new order placed)
--- OUTSIDE RECORDS SUMMARY | 2019-12-03 06:33 | XMS REPORT | Summary of Care ---
:1950 Author Organization [facility] Address [address] [facility] [place] [address] Care Team Providers Name Role Phone Duane Farmer Primary Care Provider Reason for Visit Reason Comments Follow Up pt presents for follow up Encounter Details Date Type Department Care Team Description 10/14/2019 Office Visit [facility] Duane Farmer MD Essential hypertension (Primary Dx); Practice [address] [facility] Hyperglycemia; [address] [place] [address] [place] [address] [phone] Allergies Active Allergy Reactions Severity Noted Date Comments Environmental Respiratory Reaction 05/16/2019 Eplerenone Rash 02/28/2017 documented as of this encounter (statuses as of 10/14/2019) Medications Medication Sig Dispensed Refills Start Date End Date Status Multiple Vitamin Take 1 Tab by 0 Active (MULTI-VITAMIN DAILY mouth DAILY. PO) albuterol HFA Take 2 Puffs by 3 Inhaler 0 09/14/2015 Active (PROAIR HFA) 108 (90 inhalation BASE) MCG/ACT EVERY SIX HOURS Inhalation Aero Soln NEEDED (asthma). Tamsulosin HCl Take 0.4 mg by 0 Active (FLOMAX) 0.4 MG Oral mouth DAILY. Cap Spacer/Aero-Holding 1 Each by Does 1 Each 0 08/14/2018 Active Chambers Does not not apply route apply Device DIRECTED. finasteride TAKE 1 TABLET 90 Tab 3 11/06/2018 Active (PROSCAR) 5 MG Oral DAILY Tab atorvastatin TAKE 1 TABLET 90 Tab 3 11/28/2018 Active (LIPITOR) 40 MG Oral DAILY TabIndications: Coronary artery disease involving mic[place]ukee coronary artery of mic[place]ukee heart without angina pectoris ramipril (ALTACE) 5 Take 1 Cap by 90 Cap 3 04/30/2019 Active MG Oral Cap mouth DAILY. metoprolol succinate Take 0.5 Tabs 3 06/13/2019 Active (TOPROL XL) 100 MG by mouth TWICE Oral TABLET SR 24 DAILY. HRIndications: NICM (nonischemic cardiomyopathy) (HCC) warfarin (JANTOVEN) Take 3-4 Tabs 280 Tab 3 07/17/2019 Active 2.5 MG Oral by mouth DAILY. TabIndications: 10mg Persistent atrial Mon/Mon/Mon and fibrillation 7.5mg rest of week budesonide-formotero Take 2 INHL by 30.6 g 1 08/14/2019 Active l fumarate inhalation (SYMBICORT) 80-4.5 TWICE DAILY. MCG/ACT Inhalation Aerosol dofetilide (TIKOSYN) Take 1 Cap by 180 Cap 3 08/22/2019 Active 250 MCG Oral mouth EVERY CapIndications: TWELVE HOURS. Paroxysmal atrial fibrillation (HCC) Cholecalciferol Take 2,000 0 Active (VITAMIN D3 PO) Units by mouth DAILY. diclofenac 2 g by Topical 100 g 4 08/14/2018 Discontinued (VOLTAREN) 1 % route TWO TIMES 9 Transdermal Gel DAILY NEEDED (thumb pain). To hands sucralfate Take 1 Tab by 120 Tab 0 05/16/2019 Discontinued (CARAFATE) 1 GM Oral mouth FOUR 9 Tab TIMES DAILY. Dissolve 1 tablet in 2oz of water and take 8a 12p 4p and 8p documented as of this encounter (statuses as of 10/14/2019) Active Problems Problem Noted Date Decompensated chronic obstructive pulmonary disease 08/14/2018 Chronic systolic heart failure 10/27/2016 PAF (paroxysmal atrial fibrillation) 10/24/2016 Essential hypertension 10/24/2016 Persistent atrial fibrillation 05/26/2016 alf current use of anticoagulant therapy 05/26/2016 Overview: Managed by: jean paul establish with [facility] 05/27/16 Anticoagulant: Warfarin Start of Anticoagulant: 05/26/16 Referred by: Yris Indication: Afib Target Range: 2.0-3.0 Duration: Not Determined Additional factors influencing anticoagulation: CHADS2 score of 2 for hypertension, LV dysfunction [id number] score of 3 for age > 65, hypertension, LV dysfunction Aspirin increases bleeding risk Spironolactone decreases warfarin effect Initial Referral: 05/26/16, 06/2017, 08/2018 Initial ACS: 05/26/16, 08/16/17, 09/17/18 Nonischemic cardiomyopathy 03/09/2016 Coronary artery disease involving [place]e coronary artery of [place]e heart 09/07 without angina pectoris Overview: Nonobstructive by cath in [place] 2008 (30% prox LAD, 40-50% PL). LBBB (left bundle branch block) A-fib Overview: Dx in [place] but told not to worry about it Other and unspecified hyperlipidemia Hypertension documented as of this encounter (statuses as of 10/14/2019) Immunizations Name Administration Dates Next Due PNEUMOCOCCAL [...] Sign Reading Time Taken Comments Blood Pressure 100/64 10/14/2019 9:19 AM EST Pulse 69 10/14/2019 9:19 AM EST Temperature - - Respiratory Rate - - Oxygen Saturation 95% 10/14/2019 9:19 AM EST Inhaled Oxygen Concentration - - Weight 98.6 kg (217 lb 6.4 oz) 10/14/2019 9:19 AM EST Height 175.3 cm (5' 9") 10/14/2019 9:19 AM EST Body Mass Index 32.1 10/14/2019 9:19 AM EST documented in this encounter Progress Notes Duane Farmer MD - 10/14/2019 9:20 AM EST PATIENT: Kris Dias : 1950 DATE OF SERVICE: 10/14/2019 CHIEF COMPLAINT: Chief Complaint Patient presents with Follow Up pt presents for follow up Subjective HISTORY OF PRESENT ILLNESS: Kris Dias is a 69-y.o. male. He is happy with his procedure for the heart He not think he is in afib He heard there will be a shortage of tikosyn Memory is fair His doctors include cardiology Sherif and Sharon And Dr Shabazz for urology He voids 1 x a night In for follow up of hypertension. *. no side effects to medicines and denies RAMOS, dizzyness, CP,SOB, edema or neuro symptoms . He only uses albuterol when exposed to fumes but uses symbicort daily Past Medical History: Diagnosis Date A-fib (HCC) 2015 Allergic to animal dander wheeze CAD (coronary artery disease) Diverticulosis 01/2013 5 years Hematuria Hypertension Kidney stone LBBB (left bundle branch block) Non-ischemic cardiomyopathy (HCC) Other and unspecified hyperlipidemia Plantar fasciitis Family History Problem Relation Age of Onset Hypertension Mother Migraines Mother Skin Cancer Father melanoma Colon Cancer Father High Cholesterol Sister Hypertension Sister Alcohol/Drug Brother Migraines Daughter No Known Problems Son No Known Problems Sister No Known Problems Daughter Current Outpatient Medications Medication Sig albuterol HFA [...] No current facility-administered medications for this visit. Allergies Allergen Reactions Environmental Respiratory Reaction Eplerenone Rash Social History Socioeconomic History Marital status: Spouse name: Not on file Number of children: Not on file Years of education: Not on file Highest education level: Not on file Occupational History Not on file Social Needs Financial resource strain: Not on file Food insecurity: Worry: Not on file Inability: Not on file Transportation needs: Medical: Not on file Non-medical: Not on file Tobacco Use Smoking status: Never Smoker Smokeless tobacco: Never Used Substance and Sexual Activity Alcohol use: Yes Alcohol/week: 2.0 standard drinks Types: 2 Cans of beer per week Comment: occasional Drug use: No Sexual activity: Never Lifestyle Physical activity: Days per week: Not on file Minutes per session: Not on file Stress: Not on file Relationships Social connections: Talks on phone: Not on file Gets together: Not on file Attends jainism service: Not on file Active member of club or organization: Not on file Attends meetings of clubs or organizations: Not on file Relationship status: Not on file Intimate partner violence: Fear of current or ex partner: Not on file Emotionally abused: Not on file Physically abused: Not on file Forced sexual activity: Not on file Other Topics Concern Back Care Not Asked Bike Helmet Not Asked Blood Transfusions Not Asked Caffeine Concern Not Asked Exercise Not Asked Hobby Hazards Not Asked International Travel Not Asked Service Not Asked Occupational Exposure Not Asked Seat Belt Not Asked Self-Exams Not Asked Sleep Concern Not Asked Special Diet Not Asked Stress Concern Not Asked Weight Concern Not Asked Social History Narrative 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 Has 2 adult children in the area and several grandchildren. Over the last 2 weeks, have you been feeling down, depressed, anxious, or hopeless?: 0 Over the past 2 weeks, have you felt little interest or pleasure in doing things ?: 0 REVIEW OF SYSTEMS: Review of Systems HENT: Positive for hearing loss (has aides but not like to wear them has a .fu .appt ). Gastrointestinal: Negative for heartburn (was on carafate as a preventative ). Diarrhea: occasional. Musculoskeletal: Voltaren gel not help the thumb Not bother all the time Skin: Sees derm Objective PHYSICAL EXAM: VITALS: BP 100/64 (BP Location: Left arm, Patient Position: Sitting) | Pulse 69 | Ht 5' 9" (1.753m) | Wt 217 lb 6.4 oz (98.6 kg) | SpO2 95% | BMI 32.10 kg/m Body mass index is 32.1 kg/m. Physical Exam HENT: Ears: Comments: Ears - bilateral TM's and external ear canals normal, right external ear normal, left externalear normal Mouth/Throat: Comments: [place] torus Cardiovascular: Rate and Rhythm: Normal rate and regular rhythm. Pulmonary: Effort: Pulmonary effort is normal. No respiratory distress. Breath sounds: Normal breath sounds. Abdominal: Comments: Diastasis recti Musculoskeletal: Right lower leg: No edema. Left lower leg: No edema. Psychiatric: Mood and Affect: Mood normal. ASSESSMENT / IMPRESSION: ICD-9-CM ICD-10-CM 1. Essential hypertensionBP good, no changes 401.9 I10 LIPID PROFILE BASIC METABOLIC PANEL 2. Hyperglycemia make sure not diabetes based on last labs 790.29 R73.9 GLYCOHEMOGLOBIN A1C 3. Memory loss Checking labs but not a head scan or MMSE yet 780.93 R41.3 VITAMIN B12 / FOLATE THYROID STIMULATING HORMONE Plan Author: Duane Farmer MD 10/14/2019 09:32 documented in this encounter Plan of Treatment Date Type Specialty Care Team Description 10/16/2019 Office Visit Audiology Mikey Driscoll, [place] [address] [address] [phone] 10/16/2019 Office Visit Audiology Mikey Driscoll, [facility] [address] [address] [phone] 10/21/2019 Lab Internal Medicine 11/11/2019 AntiCoag Anticoagulation 12/03/2019 [facility] 01/14/2020 Office Visit Cardiology Guillermo Colin NP [address] [address] [phone] 02/24/2020 Office Visit Cardiology Daniele Gorman MD [address] [place] [address] [phone] 04/02/2020 [facility] Name Type Priority Associated Diagnoses Order Schedule LIPID PROFILE Lab Routine Essential hypertension Expected: 10/14/2019 (Approximate), Expires: 10/14/2020 BASIC METABOLIC PANEL Lab Routine Essential hypertension Expected: 2018 (Approximate), Expires: 10/14/2020 GLYCOHEMOGLOBIN A1C Lab Routine Hyperglycemia Expected: 10/14/2019 (Approximate), Expires: 10/14/2020 VITAMIN B12 / FOLATE Lab Routine Memory loss Expected: 10/14/2019 (Approximate), Expires: 10/14/2020 THYROID STIMULATING HORMONE Lab Routine Memory loss Expected: 10/14/2019 (Approximate), Expires: 10/14/2020 Health Maintenance Due Date Last Done Comments [...] the number on the left). Consume a [id number] diet Lifestyle No Duane Farmer MD Note: This is an individualized lifestyle goal for Kris [place] Dias: Please do not add additional salt to your food. Additional salt may lead to fluid retention and worsen your congestive heart failure. Keep immunizations current Lifestyle No Duane Farmer MD Note: This is an individualized lifestyle goal for Kris Gaffneyn: Please be sure to keep up-to-date on [...] ongoing basis. Check your weight daily Self-management No Duane Farmer MD Note: This is an individualized self-management goal for Kris [place] Dias: Please check your weight daily. Refer to the accompanying CHF treatment goal and call your doctor immediately for further instructions on how to respond to unexpected weight gain. documented as of this encounter Implants Implanted Type Area Potato Peeler Device Shelf Model / Identifier Expiration Serial / Date Lot Compia Mri Quad Equipment Operator/Laborer-D Surescan Left: [employer] [id number] / Implanted: Qty: 1 on 10/26/2016 by Lennox Pro MD at [facility] Chest [id number] / Capsurefix Lead 4076-52cm Left: [employer] [id number] / Implanted: Qty: 1 on 10/26/2016 by Lennox Pro MD at [facility] Chest [id number] / Sprint Quattro Icd Lead 6935m-62cm Left: [employer] [id number] / Implanted: Qty: 1 on 10/26/2016 by Lennox Pro MD at [facility] Chest [id number] / Attain Performa Lead 4598-88cm Left: [employer] [id number] / Implanted: Qty: 1 on 10/26/2016 by Lennox Pro MD at [facility] [id number] / documented as of this encounter Results Not on filedocumented in this encounter Visit Diagnoses Diagnosis Essential hypertension - Primary Unspecified essential hypertension Hyperglycemia Other abnormal glucose Memory loss documented in this encounter Insurance Payer Benefit Plan / Subscriber ID Effective Dates Phone Address Type Group AETNA MEDICARE AETNA MEDICARE xxxxxxxx 2017-Present [employer] ADVANTAGE ADVANTAGE Guarantor Name Account Type Relation to Date of Phone Billing Address Patient Kris Dias Personal/Famil 1950 [address] [phone] [place], [place] (Work) [id number] documented as of this encounter Advance Directives [...]
--- OUTSIDE RECORDS SUMMARY | 2019-12-03 06:33 | XMS REPORT | Summary of Care ---
:1950 Author Organization [facility] Address [address] [address] Care Team Providers Name Role Phone Duane Xiao Primary Care Provider Reason for Referral Diagnostic Testing (Routine) Status Reason Specialty Diagnoses / Referred By Referred To Contact Procedures Contact No Precert Cardiology Diagnoses Paroxysmal atrial fibrillation (HCC) NICM (nonischemic cardiomyopathy) (HCC) [facility] Cardiovascular Required Procedures ECHOCARDIOGRAM TTE MD [place] Diagnostic 1 BLANCO 1 [address] [address] [address] [address] Reason for Visit Diagnostic Testing (Routine) Status Reason Specialty Diagnoses / Referred By Referred To Contact Procedures Contact No Precert Cardiology Diagnoses Paroxysmal atrial fibrillation (HCC) NICM (nonischemic cardiomyopathy) ([facility]) [facility] Cardiovascular Required Procedures ECHOCARDIOGRAM TTKym High MD Diagnostic 1 BLANCO 1 BLANCO SQ [address] [address] [address] [address] Encounter Details Date Type Department Care Team Description 10/14/2019 Hospital Encounter [facility] CARDIOVASCULAR DIAGNOSTIC Outpatient [address] [id number] Allergies Active Allergy Reactions Severity Noted Date [...] Oral DAILY TabIndications: Coronary artery disease involving [place] coronary artery of [place] heart without angina pectoris ramipril (ALTACE) 5 [...] Oral TabIndications: mouth DAILY. 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 current use of anticoagulant therapy 05/26/2016 Overview: Managed by: to establish with [facility] 05/27/16 Anticoagulant: Warfarin Start of Anticoagulant: 05/26/16 Referred by: Yris Indication: Afib Target Range: 2.0-3.0 Duration: Not Determined Additional factors influencing anticoagulation: CHADS2 score of 2 for hypertension, LV dysfunction [id number] score of 3 for age > 65, hypertension, LV dysfunction Aspirin increases bleeding risk Spironolactone decreases warfarin effect Initial Referral: 05/26/16, 06/2017, 08/2018 Initial ACS: 05/26/16, 08/16/17, 09/17/18 Nonischemic cardiomyopathy 03/09/2016 Coronary artery disease involving [place] coronary artery of [place] heart 09/07 without angina pectoris Overview: Nonobstructive by cath in [place] 2007 (30% prox LAD, 40-50% PL). LBBB (left bundle branch block) A-fib Overview: Dx in [place] but told not to worry about it [...] of this encounter Last Filed Vital Signs Not on filedocumented in this encounter Plan of Treatment Date Type Specialty Care Team Description 10/16/2019 Office Visit Audiology Mikey Driscoll AuD [address] [address] [phone] 10/16/2019 Office Visit Audiology Mikey Driscoll AuD [address] [address] [phone] 10/21/2019 Lab Internal Medicine 11/11/2019 AntiCoag Anticoagulation 12/03/2019 [facility] Arr[facility]ia [facility] 01/14/2020 Office Visit Cardiology Guillermo Colin NP [address] [address] [phone] 02/24/2020 Office Visit Cardiology Daniele Gorman MD [address] [place] [address] [phone] 04/02/2020 [facility] Health Maintenance Due Date Last Done [...] 4.9 (10/14/2019 3:07 PM EST) No Duane Xiao MD (lbs) < 5 Note: This is [...] the number on the left). Consume a fo-gbmnn-tjua diet Lifestyle No Duane Xiao MD Note: This is an individualized lifestyle goal for Kris Ruiz McMillan: Please do not add additional salt to your food. Additional salt may lead to fluid retention and worsen your congestive heart failure. Keep immunizations current Lifestyle No Duane Xiao MD Note: This is an individualized lifestyle goal for Kris Ruiz Dias: Please be sure to keep up-to-date on recommended immunizations. For example, this would include a yearly influenza vaccine. Immunization status can be seen by looking at the Health Maintenance sections of your eGuthrie, Plan of Care, and any After Visit Summaries. Take all prescribed medications as directed Self-management No Duane Xiao MD Note: This is an individualized self-management goal for Kris Ruiz Arun: Please take all prescribed medications as directed. [...] Check your weight daily Self-management No Duane Xiao MD Note: This is an individualized self-management goal for Kris Ruiz Arun: Please check your weight daily. Refer to the accompanying CHF treatment goal and call your doctor immediately for further instructions on how to respond to unexpected weight gain. documented as of this encounter Implants Implanted Type Area Special Warfare Operator Device Shelf Model / Identifier Expiration Serial / Date Lot Compia Mri Quad Adjuster Electrical Contacts-D Surescan Left: [employer] [id number] / Implanted: Qty: 1 on 10/26/2016 by [place] Pro MD at [facility] [id number] / Capsurefix Lead 4076-52cm Left: [employer] 4076-52CM / Implanted: Qty: 1 on 10/26/2016 by [place]ox Pro MD at [facility] [id number] / Sprint Quattro Icd Lead 6935m-62cm Left: [employer] [id number] / Implanted: Qty: 1 on 10/26/2016 by Lenn[place] Pro MD at [facility] [id number] / Attain Performa Lead 4598-88cm Left: [employer] 4598-88CM / Implanted: Qty: 1 on 10/26/2016 by [place] Pro MD at [facility] [id number] / documented as of this encounter Procedures Procedure Name Priority Date/Time Associated Diagnosis Comments ECHOCARDIOGRAM TTE Routine 10/14/2019 2:10 Paroxysmal atrial Results for this PM EST fibrillation (HCC) procedure are in NICM (nonischemic the results cardiomyopathy) (HCC) section. documented in this encounter Results ECHOCARDIOGRAM TTE (10/14/2019 2:10 PM EST) ECHOCARDIOGRAM TTE ECHOCARDIOGRAPHY REPORT CARDIOLOGY DEPARTMENT Patient Name: ARUN Ruiz Status: Outpatient MR Number: [id number] Gender: Male : 1950 Location: [place] Age:69 year(s) Exam Date: 10/14/2019 02:10 PM Height: 69 inches Weight: 217 pounds Study Performed: 2D echocardiogram, M-Mode, Doppler , Color Doppler, Contrast study, ECHOCARDIOGRAM TTE. Ordering LENNOX Provider: MARGUERITE DELEON Referring DUANE XIAO Provider: Assistant Women'S Rowing Coach: Amira Gray [facility] - Failure Analysis Technician Room Number Interpreting GEOVANNA HO MD BSA: 2.14 m^2 Interpreting BMI: 32.05 kg/m^2 Fellow Nurse Technical Quality: Limited visualization Contrast Medium: Definity. Amount - 1.5 ml Blood Pressure (BP): 116/72mmHg INDICATION FOR STUDY: Atrial fibrillation, Cardiomyopathy and AICD. HISTORY: 1.5cc's of Definity administered via IV with no waste on (Date) 10/14/2019 at (Time) 14:30 pm (Lot # [id number] ) ([facility] # [id number]). FINAL IMPRESSION: Technically difficult study with poor acoustic windows and limited endocardial visualization. Definity was used. Normal LV cavity size with mildly increased LV wall thickness. Normal LV systolic function with no regional wall motion abnormalities and estimated LVEF 55-60%. Mildly dilated RV with preserved RV contractility. Ascending aorta is dilated (4.3cm). Mild aortic stenosis. No pericardial effusion. In comparison with report of TTE dated 04/11/2019, there is interval improvement in LV function. Ascending aorta appears larger. OBSERVATIONS & FINDINGS: Using 2d (3d if applicable), M-mode, Colorflow, Continuous wave doppler and Pulse wave doppler interrogation Left Ventricle Normal LV cavity size with mildly increased LV wall thickness. No evidence of LVOT obstruction. Normal LV systolic function with no regional wall motion abnormalities and estimated LVEF 55-60%. Left Atrium Left atrium is normal in size. Mitral Valve Mitral leaflets appear mildly thickened with preserved mobility. There is no evidence of mitral stenosis or prolapse. No significant mitral regurgitation. Aortic Valve Aortic valve is thickened and calcified leaflets with reduced mobility. The mean and peak gradients across the aortic valve are 12mmHg and 22mmHg respectively. Aortic valve area by continuity equation is 1.5cm2. Mild aortic stenosis. There is trivial aortic regurgitation. Right Ventricle Mildly dilated RV with preserved RV contractility. Pacer/ICD Wire visualized in right atrium and right ventricle . Right Atrium The right atrium is mildly dilated. Vertical and lateral dimensions measure 5.1cm and 3.9cm respectively. Tricuspid Valve Tricuspid valve appears normal with flexible leaflets. There is no significant tricuspid regurgitation. Estimated pulmonary arterial systolic pressure is 30mmHg (normal). Pulmonic Valve Pulmonic valve is not well visualized; there is no evidence of significant pulmonic stenosis or regurgitation by doppler in parasternal short axis view. Pericardium / Pleura No pericardial effusion. Miscellaneous Ascending aorta is dilated (4.3cm). Interatrial septum appears intact by 2D imaging and Color Doppler interrogation. Measurements & Calculations: M-Mode / 2D Measurements Value Normal Value Normal LVIDd: 4.24 cm 3.5-5.5 AO Root: 3.8 cm 2.0-3.7 0.7-1.1 LA Dimension: cm 1.5-2.6 IVSd: 1.31 cm 0.7-1.1 AO Cusp Separation: 2.2 cm 1.9-4.0 LVPWD: 1.33 cm LVOT: 2.15 cm 1.5-2.5 Doppler Measurements & Calculations: Mitral: Aortic: Area (PHT): 3.67 cm^2 LVOT VTI: 18.6 cm Peak E-Wave: 73.2 cm/s Peak Velocity: 233 cm/s Peak A-Wave: 53.4 cm/s Peak Gradient: 21.72 mmHg Peak Gradient: 2.14 mmHg P1/2t: 60 msec Cusp Separation: 2.2 cm Area (continuity): 1.53 cm^2 Mean Velocity: 157 cm/s Mean Gradient: 12 mmHg Deceleration Time: 299 msec AV VTI: 44.2 cm E/A Ratio: 1.37 Tricuspid: Pulmonic: RVSP:30 mmHg Peak Velocity: 89.6 cm/s Peak TR Velocity:261 cm/s Peak Gradient: 3.21 mmHg TR Gradient:27.2484 mmHg TR Velocity: 261 cm/s TR Gradient: 27.2484 mmHg Estimated PASP: 30.25 mmHg Estimated RAP: 3 mmHg Estimated RVSP: 30 mmHg Left Atrium: Right Atrium: LA Dimension: 3.7 cm RA dimension:3.9 cm LA/Aorta: 0.97 RA area:22.8 cm^2 LA Area: 17.3 cm^2 LA Volume/Index: 56.97 ml /27m^2 Left Ventricle: Right Ventricle: Diastolic Dimension: 4.24 cm Septum Diastolic: 1.31 cm PW Diastolic: 1.33 cm Area Diastolic: 22.3 cm^2 EF Calculated: 55.62% RV sys pressure:30.25 mmHg LV Mass: 156.86 g LV Epicardial Area: 43.9 cm^2 LVOT LV Length: 7.96 cm Peak Velocity: 100 cm/s LVOT Diameter: 2.15 cm Peak Gradient: 4 mmHg LVOT Diameter: 2.15 cm Mean Velocity: 60.8 cm/s Area Systolic: 14.2 cm^2 Mean Gradient: 2 mmHg LVOT VTI: 18.6 cm LV Mass Index: 73 g/m^2 Aorta LV Endocardial Area: 26.1 cm^2 Aortic Root: 3.8 cm LV EDV/LV EDV Index: 52.5 ml/25 m^2 Ascending Aorta: 4.3 cm LV ESV/LV ESV Index: 23.3 ml/11 m^2 LVOT Diameter: 2.15 cm Pulmonary Vein: S Velocity: 69 cm/s D Velocity: 74.3 cm/s A Reversal Velocity: 29.5 cm/s A Reversal Duration: 77 msec Signature Ejection Fraction % CARDIOLOGY DEPARTMENT AV AREA 1.53 cm2 CARDIOLOGY DEPARTMENT RVSP 30 mmHg CARDIOLOGY DEPARTMENT LA Volume 56.97 ml CARDIOLOGY DEPARTMENT LVEDd 4.24 cm CARDIOLOGY DEPARTMENT LVESd cm CARDIOLOGY DEPARTMENT IVSd 1.31 cm CARDIOLOGY DEPARTMENT LVPWd 1.33 cm CARDIOLOGY DEPARTMENT ESV 23.3 ml CARDIOLOGY DEPARTMENT EDV 52.5 ml CARDIOLOGY DEPARTMENT AV Mean Gradient 12 mmHg CARDIOLOGY DEPARTMENT Specimen Performing Organization Address City/State/Zipcode Phone Number CARDIOLOGY DEPARTMENT documented in this encounter Visit Diagnoses Diagnosis Paroxysmal atrial fibrillation (HCC) Atrial fibrillation NICM (nonischemic cardiomyopathy) (HCC) Other primary cardiomyopathies documented in this encounter Administered Medications Medication Order MAR Action Action Date Dose Rate Site perflutren lipid microsphere Push 10/14/2019 2:37 PM EST 1.5 mL (DEFINITY) injection 1.5 mL 1.5 mL, Intravenous Push, PRN, Starting 10/14/19 at 1432, Until Mon10/15/19 at 0611, Poor visualization (see Admin Instructions for details) up to a max dose of 10 mL, The Assistant Women'S Rowing Coach will determine if Definity needs to be administered based on the following criteria: 1. Patient has two or more wall segments which cannot be visualized in one or more views 2. Patient is technically difficult to image and is being evaluated for: a. LV function b. Known apical thrombus and/or cardiac tumors c. Suspected myocardial rupture or pseudoaneurysm 3. Patient receiving exercise or pharmacologic stress echocardiogram studies If Definity is needed, the nurse will prepare, administer and document the administration on the eMAR. Definity is provided by the lighting technician and is to be prepared by the nurse as follows: 1. Activate perflutren lipid microsphere (DEFINITY) by shaking the vial for 45 seconds using a Vialmix 2. Draw up the contents of the vial into a 10 mL syringe and add 8.5 mL of Sodium Chloride 0.9% for a total volume of 10 mL 3. Administer 0.5 mL IV push 4. Flush the line with 3 mL Sodium Chloride 0.9% over 10 seconds to clear the tubing 5. Assistant Women'S Rowing Coach will monitor the visualization of images 6. If images are still not optimal, repeat steps 3 & 4 as needed until images are optimal OR a total of 10 mL of Definity has been administered. , documented in this encounter Insurance Payer Benefit Plan / Subscriber ID Effective Dates Phone Address Type Group AETNA MEDICARE AETNA MEDICARE xxxxxxxx 2017-Present A[employer]na ADVANTAGE ADVANTAGE Guarantor Name Account Type Relation to Date of Phone Billing Address Patient Kris Dias Personal/Famil 1950 [address] ([address]) [address] [phone] [place], [place] (Work) [phone] documented as of this encounter Advance Directives [...]
--- OUTSIDE RECORDS SUMMARY | 2019-12-03 06:33 | XMS REPORT | Summary of Care ---
:1950 Author Organization [facility] Address [address] [address] Care Team Providers Name Role Phone MarlenyDuane quesada Primary Care Provider Reason for Visit Reason Comments Hearing Evaluation Encounter Details Date Type Department Care Team Description 10/16/2019 Office Visit [facility] - Mikey Driscoll, Sensorineural hearing [place] [facility] loss, bilateral (Primary [address]) [place] [address] [address] [address] [phone] Allergies Active Allergy Reactions Severity Noted Date [...] Oral DAILY TabIndications: Coronary artery disease involving [place] coronary artery of [place] heart without angina pectoris ramipril (ALTACE) 5 [...] Essential hypertension 10/24/2016 Persistent atrial fibrillation 05/26/2016 shelter current use of anticoagulant therapy 05/26/2016 Overview: Managed by: to establish with [facility] 05/27/16 Anticoagulant: Warfarin Start of Anticoagulant: 05/26/16 Referred by: Yris Indication: Afib Target Range: 2.0-3.0 Duration: Not Determined Additional factors influencing anticoagulation: CHADS2 score of 2 for hypertension, LV dysfunction [id number] score of 3 for age > 65, hypertension, LV dysfunction Aspirin increases bleeding risk Spironolactone decreases warfarin effect Initial Referral: 05/26/16, 06/2017, 08/2018 Initial ACS: 05/26/16, 08/16/17, 09/17/18 Nonischemic cardiomyopathy 03/09/2016 Coronary artery disease involving [place] coronary artery of [place] heart 09/07 without angina pectoris Overview: Nonobstructive [...] Signs Not on filedocumented in this encounter Progress Notes Mikey Driscoll, [place] - 10/16/2019 10:00 AM ESTHistory: The patient was accompanied to today's comprehensive hearing evaluation by his . The patient's main concern is increased difficulty communicating with his and grandchildren despite using a pair of Section 101 BTE's. The patient denied otalgia, otorrhea, tinnitus, dizziness, and auralfullness. His last evaluation from 2013 revealed a normal sloping to moderate-severe SNHL in the right ear and a normal sloping to severe SNHL in the left ear. Otoscopy: Otoscopy revealed clear canals and intact tympanic membranes, AU. Tympanometry: Type A tympanograms were obtained bilaterally, suggesting normal middle ear pressure and tympanic membrane mobility. Pure-tone Audiometry: Pure-tone test results were obtained using inserts. Testing revealed a normal sloping to moderate-severe high frequency sensorineural hearing loss in the right ear and a normal sloping to severe high frequency sensorineural hearing loss in the left ear. Pure-tone testing was completed with good reliability. Results are consistent with 2014 results. Speech Audiometry: Speech Recognition Thresholds (SRT's) were obtained at 20 dB HL for the right ear and 25 dB HL for the left ear, which are consistent with the patient's pure- tone findings. Word Recognition Scores (WRS) revealed 96% discrimination at 60 dB for the right ear and 92% discrimination at 65 dB for the leftear for monosyllabic words presented at the patient's most comfortable listening level in a quiet environment, indicating excellent word recognition for monosyllabic words presented at a comfortable listening level in a quiet environment. Word Recognition Scores have remained stable since their last evaluation. Recommendations: 1. Forward test results to physician. 2. Hearing re-test in one year or sooner if suspected change in hearing. 3. The patient may wish to update their current amplification to new given the age and condition of their device. documented in this encounter Plan of Treatment Date Type Specialty Care Team Description 10/21/2019 Lab Internal Medicine 11/11/2019 AntiCoag Anticoagulation 12/03/2019 [facility] Arrhythmia Center 01/14/2020 Office Visit Cardiology Guillermo Colin NP [address] [address] [phone] 02/24/2020 Office Visit Cardiology Daniele Gorman MD [address] [place] [address] [phone] 04/02/2020 [facility] Arrhythmia [facility] Name Type Priority Associated Diagnoses Order Schedule TYMPANOMETRY Procedures Routine Sensorineural hearing loss, Ordered: 2018 bilateral Health Maintenance Due Date Last Done Comments [...] the number on the left). Consume a tb-enlni-bbyu diet Lifestyle No Duane Farmer MD Note: This is an individualized lifestyle goal for Kris Dias: Please do not add additional salt to your food. Additional salt may lead to fluid retention and worsen your congestive heart failure. Keep immunizations current Lifestyle No Duane Farmer MD Note: This is an individualized lifestyle goal for Kris Ruiz Arun: Please be sure to keep up-to-date on recommended immunizations. For example, this would include a yearly influenza vaccine. Immunization status can be seen by looking at the Health Maintenance sections of your eGuthrie, Plan of Care, and any After Visit Summaries. Take all prescribed medications as directed Self-management No Duane Farmer MD Note: This is an individualized self-management goal for Kris Ruiz McMillan: Please take all prescribed medications as directed. [...] of this encounter Implants Implanted Type Area Firer Watertender Device Shelf Model / Identifier Expiration Serial / Date Lot Compia Mri Quad Aesthetics Instructor-D Surescan Left: [employer] [id number] / Implanted: Qty: 1 on 10/26/2016 by Lennox Pro MD at [facility] [id number] / Capsurefix Lead 4076-52cm Left: [employer] 4076-52CM / Implanted: Qty: 1 on 10/26/2016 by Lennox Pro MD at [facility] [id number] / Sprint Quattro Icd Lead 6935m-62cm Left: [employer] [id number]-[id number] / Implanted: Qty: 1 on 10/26/2016 by Lennox Pro MD at [facility] [id number] / Attain Performa Lead 4598-88cm Left: [employer] 4598-88CM / Implanted: Qty: 1 on 10/26/2016 by Lennox Pro MD at [facility] [id number] / documented as of this encounter Procedures Procedure Name Priority Date/Time Associated Diagnosis Comments BASIC COMPREHENSIVE AUDIO Routine 10/16/2019 Sensorineural hearing loss, bilateral documented in this encounter Results Not on filedocumented in this encounter Visit Diagnoses Diagnosis Sensorineural hearing loss, bilateral - Primary documented in this encounter Insurance Payer Benefit Plan / Subscriber ID Effective Dates Phone Address Type Group AETNA MEDICARE AETNA MEDICARE xxxxxxxx 2017-Present [employer] ADVANTAGE ADVANTAGE Guarantor Name Account Type Relation to Date of Phone Billing Address Patient Kris Dias Personal/Famil 1950 [address] ([address] [phone] [place], [place] (Work) [phone] documented as of this encounter Advance Directives [...]
--- OUTSIDE RECORDS SUMMARY | 2019-12-03 06:33 | XMS REPORT | Summary of Care ---
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, bilateral (Primary [address]) [place] [address] [place] [address] [phone] Allergies Active Allergy Reactions Severity Noted Date [...] Oral DAILY TabIndications: Coronary artery disease involving [place] coronary artery of [place] heart without angina pectoris ramipril (ALTACE) 5 [...] Essential hypertension 10/24/2016 Persistent atrial 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 05/26/2016 Overview: Managed by: to establish with [facility] 05/27/16 Anticoagulant: Warfarin Start of Anticoagulant: 05/26/16 Referred by: Yris Indication: Afib Target Range: 2.0-3.0 Duration: Not Determined Additional factors influencing anticoagulation: CHADS2 score of 2 for hypertension, LV dysfunction [id number] score of 3 for age > 65, hypertension, LV dysfunction Aspirin increases bleeding risk Spironolactone decreases warfarin effect Initial Referral: 05/26/16, 06/2017, 08/2018 Initial ACS: 05/26/16, 08/16/17, 09/17/18 Nonischemic cardiomyopathy 03/09/2016 Coronary artery disease involving [place] coronary artery of [place] heart 09/07 without angina pectoris Overview: Nonobstructive [...] filedocumented in this encounter Progress Notes Mikey Driscoll AuD - 10/16/2019 10:30 AM ESTFollowing today's hearing evaluation the patient was seen for a hearing aid check and hearing aid consultation. The patient's provided a pair of [employer] BTE hearing aids and was requestingre-programming. I informed the patient that I was unable to provide programming as they are locked to their rotary drier. I called [employer] to inquire about programming. They instructed me to have the patient send the devices to them with a copy of his most recent audio and that they wouldperform the programming changes.I informed the patient of this and provided said copy. While the patient was here he was provided a demonstration of ALTILIA M technology. The deviceswere inserted and programmed according to today's loss. Following programming a feedback evaluation was run, results of which were good. After feedback testing the devices were activated and set to 100%. The patient was impressed with the technology and requested that a formal insurance inquiry be filed as he will not be able to purchase devices unless his insurance has a benefit. Insurance inquiry will be submitted and he will be contacted when results are obtained. documented in this encounter Plan of Treatment Date Type Specialty Care Team Description 10/21/2019 Lab Internal Medicine 11/11/2019 AntiCoag Anticoagulation 12/03/2019 [facility] 01/14/2020 Office Visit Cardiology Guillermo Colin, [address] [place] [address] 02/24/2020 Office Visit Cardiology Daniele Gorman MD [address] [id number] [phone] 04/02/2020 [facility] Arrhythmia [facility] Name Type Priority Associated Diagnoses Order Schedule HEARING AID RECHECK Procedures Routine Sensorineural hearing Ordered: 10/16 loss, bilateral Health Maintenance Due Date Last Done [...] the number on the left). Consume a fy-ghihm-dwlz diet Lifestyle No Duane Farmer MD Note: [...] of this encounter Implants Implanted Type Area Asset Manager Device Shelf Model / Identifier Expiration Serial / Date Lot Compia Mri Quad Licensing Services Clerk-D Surescan Left: [employer] [id number] / Implanted: Qty: 1 on 10/26/2016 by Lennox Pro MD at [facility] Chest [id number] / Capsurefix Lead 4076-52cm Left: [employer] 4076-52CM / Implanted: Qty: 1 on 10/26/2016 by Lennox Pro MD at [facility] [id number] / Sprint Quattro Icd Lead 6935m-62cm Left: [employer] [id number] / Implanted: Qty: 1 on 10/26/2016 by Lennox Pro MD at [facility] [id number] / Attain Performa Lead 4598-88cm Left: [employer] 4598-88CM / Implanted: Qty: 1 on 10/26/2016 by Lennox Pro MD at [facility] [id number] / documented as of this encounter Results [...] Personal/Famil 1950 [address] [phone] [place], [place] (Work) [id number] documented as of this encounter Advance Directives [...]
[2019-12-03] MEDS ORDERED: Morphine 4 MG/ML VIAL (1 ml) 4 MG/ML VIAL IV ONE (06:38)
[2019-12-03] MEDS ORDERED: Ketorolac INJ* 30 MG/ML 1 ML VIAL IV ONE (06:38)
[2019-12-03] MEDS ORDERED: Ondansetron INJ* 2 MG/ML VIAL IV ONE (06:38)
[2019-12-03 06:57] LABS: ABS Eosinophils 0.1 10^3/ul (0-0.6); ABS Lymphocytes 0.8 10^3/ul (1.0-4.8); ABS Monocytes 0.5 10^3/ul (0-0.8); ABS Neutrophils 6.5 10^3/ul (1.5-7.7); Eosinophil % 0.8 %; Hematocrit 42 % (42-52); Hemoglobin 14.6 g/dL (14.0-18.0); Lymphocyte % 10.3 %; Mean Corpuscular HGB Conc 35 g/dL (31-36); Mean Corpuscular Hemoglobin 34 pg (27-31); Mean Corpuscular Volume 97 fL (80-94); Mean Platelet Volume 7.8 fL (7.4-10.4); Platelet Count 132 10^3/uL (150-450); Red Blood Count 4.36 10^6 /uL (4.18-5.48); Red Cell Distribution Width 13 % (10-15)
[2019-12-03] MEDS: NS 0.9% 1000 ML** 2,000 ML IV ONE ×2 (07:00→08:29)
--- NOTE | 2019-12-03 07:03 | ED ---
Abdominal Pain/Male - HPI Summary HPI Summary: This patient is a 69-year-old male who is otherwise healthy presents to the ED with left-sided flank pain, mid abdominal pain, nausea and vomiting since 3 hours ago. Pt states sxs began a few hours ago with mid abd pain. Radiation now to the L flank without associated gross hematuria. Denies diarrhea, but states he feels the need to go when he has the intermittent L flank pain. Denies SOB, CP, RAMOS, sweats, chills, recent fevers. Denies eating anything abnormal. Denies urinary symptoms currently. Has seen Dr. Shabazz in the past for BPH and gross hematuria. hx of stone x 1 - passed spontaneously. No hx of stents. Hx of AICD and currently on Warfarin and Jantovin as well as metroprolol and ramipril. Hx of a fib, but - History of Current Complaint Chief Complaint: EDFlankPain Stated Complaint: BACK PAIN PER PT Time Seen by Provider: 12/03/19 06:37 Hx Obtained From: Patient Onset/Duration: Sudden Onset Timing: Constant Pain Intensity: 8 Pain Scale Used: 0-10 Numeric Location: Flank Radiates: Yes Radiates to: LLQ Character: Sharp Aggravating Factor(s): Nothing Alleviating Factor(s): Nothing Associated Signs And Symptoms: Positive: Negative, Vomiting - Allergies/Home Medications Allergies/Adverse Reactions: Allergies Allergy/AdvReac Type Severity Reaction Status Date / Time eplerenone Allergy Anaphylatic Verified 12/03/19 08:50 Shock Home Medications: Home Medications Albuterol HFA INHALER* [Ventolin HFA Inhaler*] 2 puff INH Q6H PRN 12/03/19 [ History Confirmed 12/03/19] Cholecalciferol CAP/TAB(NF) [Vitamin D3 CAP/TAB (NF)] 2,000 unit PO DAILY [History Confirmed 12/03/19] Dofetilide CAP* [Tikosyn CAP*] 250 mcg PO Q12H 12/03/19 [History Confirmed 12/03] Multivitamins/Minerals TAB* [Theragran/minerals TAB*] 1 tab PO DAILY 12/03/19 [ History Confirmed 12/03/19] Warfarin TAB(*) [Coumadin TAB(*)] 7.5 mg PO SUTUTHSA 12/03/19 [History Confirmed 12/03/19] PMH/Surg Hx/FS Hx/Imm Hx Previously Healthy: Yes Endocrine/Hematology History: Denies: Hx Diabetes Cardiovascular History: Reports: Hx Atrial Fibrillation, Hx Hypercholesterolemia , Hx Hypertension, Hx Pacemaker/ICD Respiratory History: Reports: Hx Asthma History: Denies: Hx Dialysis, Hx Renal Disease - Surgical History Surgery Procedure, Year, and Place: CARDIAC-defib 04/2016, appendectomy,tonsils - Immunization History Hx Pertussis Vaccination: No Immunizations Up to Date: Yes Infectious Disease History: No Infectious Disease History: Denies: Traveled Outside the [place] in Last 30 Days - Family History Known Family History: Positive: Cardiac Disease - CHF to father in 80s. , Diabetes - positive to mother - Social History Occupation: Unemployed Lives: With Family Alcohol Use: Occasionally Hx Substance Use: No Substance Use Type: Reports: None Hx Tobacco Use: No Smoking Status (MU): Never Smoked Tobacco Have You Smoked in the Last Year: No Review of Systems Negative: Fever, Chills, Fatigue, Skin Diaphoresis Negative: Palpitations, Chest Pain Negative: Shortness Of Breath, Cough Positive: Abdominal Pain, Vomiting, Nausea Positive: flank pain Negative: Arthralgia, Myalgia Skin: Negative Neurological: Negative All Other Systems Reviewed And Are Negative: Yes Physical Exam Triage Information Reviewed: Yes Vital Signs On Initial Exam: Initial Vitals Temp Pulse Resp BP Pulse Ox 98.8 F 70 18 167/96 95 12/03/19 06:28 12/03/19 06:28 12/03/19 06:28 12/03/19 06:28 12/03/19 06:28 Vital Signs Reviewed: Yes Appearance: Positive: Pain Distress Skin: Positive: Warm, Skin Color Reflects Adequate Perfusion Head/Face: Positive: Normal Head/Face Inspection Eyes: Positive: EOMI, Conjunctiva Clear Neck: Positive: Supple, No Lymphadenopathy Respiratory/Lung Sounds: Positive: Clear to Auscultation, Breath Sounds Present Cardiovascular: Positive: RRR, Pulses are Symmetrical in both Upper and Lower Extremities Musculoskeletal: Positive: Normal, Strength/ROM Intact Neurological: Positive: Speech Normal Psychiatric: Positive: Normal, Affect/Mood Appropriate Procedures - Sedation Patient Received Moderate/Deep Sedation with Procedure: No - not in the ED Diagnostics - Vital Signs Vital Signs Temp Pulse Resp BP Pulse Ox 12/03/19 07:01 12/03/19 06:28 98.8 F 70 18 167/96 95 - Laboratory Lab Results: Lab Results 12/03/19 Range/Units 06:49 WBC 8.0 (3.5-10.8) 10^3/uL RBC 4.36 (4.18-5.48) 10^6 /uL Hgb 14.6 (14.0-18.0) g/dL Hct 42 (42-52) % MCV 97 H (80-94) fL MCH 34 H (27-31) pg MCHC 35 (31-36) g/dL RDW 13 (10-15) % Plt Count 132 L (150-450) 10^3/uL MPV 7.8 (7.4-10.4) fL Neut % (Auto) 81.7 % Lymph % (Auto) 10.3 % [place] % (Auto) 6.7 % Eos % (Auto) 0.8 % Baso % (Auto) 0.5 % Absolute Neuts (auto) 6.5 (1.5-7.7) 10^3/ul Absolute Lymphs (auto) 0.8 L (1.0-4.8) 10^3/ul Absolute Monos (auto) 0.5 (0-0.8) 10^3/ul Absolute Eos (auto) 0.1 (0-0.6) 10^3/ul Absolute Basos (auto) 0.0 (0-0.2) 10^3/ul Absolute Nucleated RBC 0.0 10^3/ul Nucleated RBC % 0.0 Result Diagrams: 12/03/19 06:49 12/03/19 06:49 Lab Statement: Any lab studies that have been ordered have been reviewed, and results considered in the medical decision making process. Abdominal Pain Male Course/Dx - Course Course Of Treatment: This patient is evaluated for left-sided flank pain radiating around into the left lower quadrant. Associated with nausea, vomiting. 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 He states he does have a history of kidney stones 1, however this passed spontaneously. He does have a history of BPH and is followed by Dr. Shabazz. On arrival into the ED, the patient is given Toradol, morphine and Zofran with good improvement of symptoms. CT abdomen/pelvis shows: Proximal left ureteral calculus with mild pelviectasis. Pancreatic head calcifications consistent with chronic pancreatitis. Diverticulosis. Small hiatal hernia. Atherosclerosis. UA obtained which shows WBC 3+, RBC 3+, bacteria one plus. Discussed case with Dr. Shabazz who recommends 2 g Rocephin. Patient is given 2 L fluids. Labs obtained which show an INR of 2.11 and a BUN/creatinine [address] Shbaazz, pt will go to OR for stent placement. Admitted. - Diagnoses Differential Diagnosis/HQI/PQRI: Ureteral Stone, Urinary Tract Infection Provider Diagnoses: Kidney stone on left side - Provider Notifications Discussed Care Of Patient With: Gustavo Shabazz Instructed by Provider To: Admit As Inpatient Discharge ED - Sign-Out/Discharge Documenting (check all that apply): Patient Departure All imaging exams completed and their final reports reviewed: No - Discharge Plan Condition: Fair Disposition: ADMITTED TO [facility] - Billing Disposition and Condition Condition: FAIR Disposition: Admitted to [facility]
[2019-12-03 07:05] LABS: INR 2.11 (0.82-1.09)
[2019-12-03 07:18] LABS: ALT 33 U/L (7-52); AST 27 U/L (13-39); Albumin 4.1 g/dL (3.2-5.2); Albumin/Globulin Ratio 1.4 (1-3); Alkaline Phosphatase 72 U/L (34-104); Anion Gap 6 mmol/L (2-11); BUN/Creatinine Ratio 16.9 (8-20); Blood Urea Nitrogen 15 mg/dL (6-24); C Reactive Protein < 1.00 mg/L (<8.01); CO2 Carbon Dioxide 26 mmol/L (22-32); Calcium 8.9 mg/dL (8.6-10.3); Chloride 104 mmol/L (101-111); EGFR Non-African American 84.3 (>60); Globulin 2.9 g/dL (2-4); Glucose 163 mg/dL (70-100); Magnesium 1.8 mg/dL (1.9-2.7); Potassium 4.4 mmol/L (3.5-5.0); Sodium 136 mmol/L (135-145)
[2019-12-03 08:41] LABS: Urine Appearance Turbid; Urine Bilirubin Negative (Negative); Urine Blood 3+ (Negative); Urine Color Amber; Urine Glucose Negative (Negative); Urine Ketones Negative (Negative); Urine Nitrite Negative (Negative); Urine Protein 1+(30 mg/dL) (Negative); Urine Urobilinogen Negative (Negative)
[2019-12-03 08:46] LABS: Urine Bacteria 1+ (Absent); Urine Red Blood Cell 3+(>10/hpf) (Absent); Urine Squamous Epithelial Cell Present (Absent); Urine White Blood Cell 3+(>20/hpf) (Absent)
[2019-12-03] MEDS ORDERED: cefTRIAXone(*) 2 GM in NS 0.9% 100 ML* 100 ML IVPB ONE (08:58)
[2019-12-03] MEDS ORDERED: Buffered Lidocaine 1% SYRIN* 1 ML/SYRINGE INTRADERM ONE (09:14)
[2019-12-03] MEDS ORDERED: Naloxone* 0.4 MG/ML 1 ML VIAL IV PRN ×2 (09:16→10:35)
[2019-12-03] MEDS ORDERED: HYDROmorphone INJ1* 1 MG/ML SYRINGE IV PRN ×2 (09:16→10:35)
[2019-12-03] MEDS ORDERED: Iohexol 180 (CONTRAST) 10 ML SDV IV ONE (09:57)
[2019-12-03] MEDS ORDERED: Lactated Ringers 1000 ML Bag* 1,000 ML IV SCH ×2 (10:00)
[2019-12-03] MEDS ORDERED: Lidocaine 2% JELLY* 6 ML JELLY TOPICAL ONE (10:05)
[2019-12-03] MEDS ORDERED: Lidocaine 2% JELLY* 20 ML (for OR use) ONE (10:07)
[2019-12-03] MEDS ORDERED: Lidocaine 2% PF* 10 ML AMP ONE (10:18)
[2019-12-03] MEDS ORDERED: Propofol* 10 MG/ML 20 ML BTL ONE (10:18)
[2019-12-03] MEDS ORDERED: Etomidate* 2 MG/ML 10 ML VIAL ONE (10:18)
[2019-12-03 11:36] VITALS: BP 130/77
--- NOTE | 2019-12-03 18:19 | OP ---
CC: Dr. Duane Farmer * DATE OF OPERATION: 12/03/19 - [facility] DATE OF : 46 SURGEON: Gustavo Shabazz MD. ANESTHESIOLOGIST: Dr. Mclean. ANESTHESIA: IV sedation with MAC. PRE-OP DIAGNOSES: 1. Left renal colic. 2. 6-mm left ureteropelvic junction calculus. POST-OP DIAGNOSES: 1. Left renal colic. 2. 6-mm left ureteropelvic junction calculus. OPERATIVE PROCEDURE: 1. Cystoscopy. 2. Left retrograde pyelography. 3. Insertion of left ureteral stent (6-Austrian). INDICATION FOR PROCEDURE: Mr. Dias is a 69-year-old white male, who presented to the emergency room early this morning with symptoms of left renal colic. Non- contrast CT of the abdomen and pelvis showed a 6-mm partially obstructing calculus at the left ureteropelvic junction. No other renal calculi were noted. Urinalysis was positive for esterase and blood, negative otherwise. The patient did not seem septic and did not have an elevated white count. The patient is taken to the operating room for insertion of a left ureteral stent in preparation for definitive treatment of the stone. OPERATIVE FINDINGS: At cystoscopy, the penile and bulbar urethrae looked normal. The prostatic urethra was obstructing measuring 3 cm in length with prominent lateral and median lobes of the prostate. Examination of the bladder showed moderate diffuse trabeculations. No suspicious bladder lesions were noted. The ureteral orifices looked normal. At fluoroscopy, a radiopaque calculus was noted in the area of the left kidney. Upon left retrograde pyelography, mild left hydronephrosis was noted. DESCRIPTION OF PROCEDURE: With the patient in the dorsal lithotomy position and under intravenous sedation and anesthesia monitoring, the patient was prepped and draped for cystoscopy. Cystoscopy was performed. The findings in the prostatic urethra and in the bladder were noted. A flexible tip guidewire was then introduced into the left ureteral orifice. Because of the enlargement of the prostate, there was fish-hooking of the ureter and there was some difficulty introducing the guidewire into the distal ureter. After several attempts, the guidewire was successfully introduced in the left renal pelvis. A size 5-Austrian open-ended catheter was then fed on top of the guidewire and positioned in the area of the renal pelvis. Retrograde pyelography was performed. A size 6-Austrian stent was then placed. The proximal end coiled in an upper pole infundibulum and the distal end coiled inside the bladder. There was good drainage of contrast from the kidney and no extravasation. The patient tolerated the procedure well and left the operating room in good condition. The plan is to obtain a KUB before the patient's discharge. Depending upon the findings, we will decide on the definitive treatment of the stone. [id number]/[facility] #: [id number] [facility]
== END 2019-12-03 10:35 | disposition home or self-care (01) ==
LOC: ED 06:26 → OR 10:35
PROVIDERS: ATTEND Urology
DX: N13.2 Hydronephrosis with renal and ureteral calculous obstruction (principal); R10.32 Left lower quadrant pain; R11.2 Nausea with vomiting, unspecified; Z95.810 Presence of automatic (implantable) cardiac defibrillator; Z79.01 Long term (current) use of anticoagulants; I48.91 Unspecified atrial fibrillation; E78.00 Pure hypercholesterolemia, unspecified; J45.909 Unspecified asthma, uncomplicated; I25.10 Atherosclerotic heart disease of native coronary artery without angina pectoris; I25.2 Old myocardial infarction; E78.5 Hyperlipidemia, unspecified; N18.9 Chronic kidney disease, unspecified; I12.9 Hypertensive chronic kidney disease with stage 1 through stage 4 chronic kidney disease, or unspecified chronic kidney disease
CPT/HCPCS: 36415; 74018; 74176; 74420; 80053; 81003; 81015; 83605; 83690; 83735; 85025; 85610; 86140; 87086; 93005; 96374; 96375; 99285; C1876; J0696; J1885; J2001; J2270; J2405; J2704

== ENCOUNTER → 2019-12-23 05:34 | Day surgery (SDC) | payer MEDICARE ==
--- NOTE | 2019-12-16 23:44 | HP ---
CC: Dr. Duane Farmer * HISTORY AND PHYSICAL: DATE OF PLANNED ADMISSION AND SURGERY: 12/23/19 HISTORY OF PRESENT ILLNESS: Mr. Dias is a 69-year-old white male who is admitted with a left renal calculus, status post placement left ureteral stent for shock wave lithotripsy of the left renal calculus and possible cystoscopy and removal of left ureteral stent. I have been following Mr. Dias for the last 6 years because of history of gross hematuria, bladder outlet obstruction, and prostate enlargement. He has been on anticoagulation because of atrial fibrillation. His work-up showed a left renal calculus, prostate enlargement and obstruction. He had been maintained on tamsulosin and on finasteride with good response and good bladder emptying. The patient presented to the emergency room on 12/03/19 with symptoms of left renal colic. He had a CT of the abdomen and pelvis, which showed a 6 to 7 mm calculus at the left ureteropelvic junction. He was taken to the operating room that same day and had a cystoscopy and insertion of left ureteral stent. Postoperative KUB showed the left stent in good condition and the calculus to have migrated into the left collecting system. Because of the above history and above findings, the patient is admitted for shock wave lithotripsy of the left renal calculus and if there is good fragmentation of the stone, for cystoscopy and removal of the left ureteral stent. PAST MEDICAL HISTORY AND SYSTEM REVIEW: The patient has history of atrial fibrillation and has been followed by Dr Farmer his PCP and Dr. Gorman his aquatics group fitness instructor at [place]. I am including a copy of the detailed cardiology note dated 10/14/19. The patient has history of paroxysmal atrial fibrillation, nonischemic cardiomyopathy, essential hypertension, left bundle-branch block. He, however, has very good exercise tolerance and has been exercising regularly. He is maintained on Tikosyn 250 mg twice a day, metoprolol 50 mg twice a day, ramipril 5 mg daily, albuterol inhaler, Lipitor 40 mg daily, Symbicort inhaler, vitamin D3. He has an implanted pacemaker defibrillator. He had been maintained on warfarin; however, this was discontinued 1 week prior to this admission. The stopping of the warfarin was done after consultation with Dr. Farmer who consulted the patient's aquatics group fitness instructor. The patient has good exercise tolerance. He denies any chest pain at this time. ALLERGIES: He denies any allergies to medications. SOCIAL HISTORY: He is a nonsmoker. He denies any use of recreational drugs. He denies any mental health problems. FAMILY HISTORY: His family history is negative. PHYSICAL EXAMINATION GENERAL: Pleasant, moderately overweight, otherwise healthy-looking while male. VITAL SIGNS: Blood pressure 120/80, pulse of 68. LUNGS: Clear. HEART: Regular and rhythmic. No murmurs. ABDOMEN: Soft, no masses, no tenderness, and no CVA tenderness. RECTAL: Exam done in October showed a moderately enlarged, but nonsuspicious prostate. IMPRESSION: 1. Recent episode of left renal colic caused by an obstructing calculus, managed with left ureteral stent drainage. 2. Prostate enlargement and bladder outlet obstruction with good response to medical treatment with finasteride and tamsulosin. 3. History of atrial fibrillation, compensated cardiomyopathy, coronary artery disease, asymptomatic. 4. Status post insertion of pacemaker AICD. PLAN: The plan is for shock wave lithotripsy of the left renal calculus and if there is good fragmentation of the stone, for cystoscopy and removal of the left ureteral stent. I discussed the above plans in detail with the patient and his and all their questions were answered. Some of the potential complications including hematuria and renal hematoma were discussed. [id number]/[facility] #: [id number] JACQUELYN
[~2019-12-23 05:34] MED LIST: Acetaminophen TAB* 325 MG ONE; Acetaminophen TAB* 325 MG PO ONE; Buffered Lidocaine 1% SYRIN* 1 ML/SYRINGE INTRADERM ONE; DiMENhydriNATE IV* 50 MG/ML VIAL IV PUSH PRN; Famotidine IV* 10 MG/ML 2 ML (20 mg) IV ONE; Famotidine IV* 10 MG/ML 2 ML (20 mg) ONE; HYDROcodone/ACETAMIN 5-325 MG* 1 TAB PO PRN; Lactated Ringers 1000 ML Bag* 1,000 ML IV SCH; Levalbuterol 0.63MG/3ML NEB* UNIT OF USE INH PRN; Lidocaine 2% PF * 5 ML VIAL ONE; Midazolam* 1 MG/ML 2 ML VIAL (2 MG) ONE; NS 0.9% 1000 ML** 1,000 ML IV SCH; Naloxone* 0.4 MG/ML 1 ML VIAL IV PRN; Ondansetron INJ* 2 MG/ML VIAL ONE; Phenylephrine 40 MCG/ML SYRINGE ONE; Propofol* 10 MG/ML 20 ML BTL ONE; cefTRIAXone(*) 2 GM ADDV.VIAL IVPB ONE; fentaNYL* 50 MCG/ML 2 ML VIAL (100 MCG VIAL) IV PRN; fentaNYL* 50 MCG/ML 2 ML VIAL (100 MCG VIAL) ONE
[2019-12-23 07:07] LABS: Activated Partial Thrombo Time 36.3 seconds (26.0-38.0); INR 1.09 (0.82-1.09)
[2019-12-23 09:35] VITALS: BP 114/61
--- NOTE | 2019-12-23 12:52 | OP ---
CC: Dr. Duane Farmer * DATE OF OPERATION: 12/23/19 - [facility] DATE OF : 46 SURGEON: Dr. Shabazz. ANESTHESIOLOGIST: Dr. Jerardo Nye. ANESTHESIA: General. PRE-OP DIAGNOSES: 1. Left renal calculus. 2. Status post placement left ureteral stent. POST-OP DIAGNOSES: 1. Left renal calculus. 2. Status post placement left ureteral stent. OPERATIVE PROCEDURE: 1. Shockwave lithotripsy of left renal calculus (7 mm, lower pole). 2. Cystoscopy and removal of left ureteral stent. INDICATION FOR PROCEDURE: Mr. Dias is a 69-year-old white male who presented to the emergency room on 12/03/19 with symptoms of left renal colic, and was noted on CT to have a 7-mm obstructing calculus at the left uretero- pelvic junction. He had urgent placement of left ureteral stent. Postoperative KUB showed the left stent in good position and the stone to have migrated into the lower pole calyx. The patient now is being brought in for definitive treatment of the stone. He has been on anticoagulation with warfarin and was discontinued 1 week preop. PATHOLOGY: Preoperative KUB again showed the radiopaque calculus in the lower pole calyx of the left kidney. The left ureteral stent was in good position. At fluoroscopy, the left renal calculus was seen in the lower pole calyx, and the ureteral stent in good position. At cystoscopy, the penile and bulbar urethrae looked normal. The prostatic urethra measured 2.5 cm in length and there was moderate obstruction by the prostate. Examination of the bladder showed the expected edema from the left ureteral stent. The distal limb of the stent was seen coming from the left orifice. DESCRIPTION OF PROCEDURE: After successful general anesthesia and with the anesthesiologist placing a magnet over his defibrillator, the patient was placed in the supine position on the shockwave lithotripsy table. The left renal calculus was visualized in both the PA and the oblique x-ray views and the position of the generator and of the patient were adjusted to have the focus of the shock waves. A total of 1,400 shocks were then delivered at a rate of 60 shocks per minute. The energy was kept at the maximum of 5. The proper positioning and fragmentation of the stone were monitored periodically. At the completion of the treatment, there was very good fragmentation of the stone with the fragments scattered in the lower pole collecting system. Decision was made to remove the stent. The patient was prepped and draped for cystoscopy. A #14 red rubber catheter was introduced inside the bladder and the bladder was drained. Flexible cystoscopy was then performed, the stent was grasped and was pulled out intact. The patient tolerated the procedure well and left the operating room in good condition. The plan is to see the patient in the office in 4 days. A renal ultrasound will be obtained. If there is no renal hematoma, the patient will be restarted on his warfarin. [id number]/[facility] #: [id number] MTDD
== END | disposition home or self-care (01) ==
LOC: OR 05:34
PROVIDERS: ATTEND Urology
DX: N20.0 Calculus of kidney (principal); I48.91 Unspecified atrial fibrillation; Z79.01 Long term (current) use of anticoagulants; N40.0 Benign prostatic hyperplasia without lower urinary tract symptoms; Z95.0 Presence of cardiac pacemaker; I10 Essential (primary) hypertension; I25.10 Atherosclerotic heart disease of native coronary artery without angina pectoris; I44.7 Left bundle-branch block, unspecified; J45.909 Unspecified asthma, uncomplicated
CPT/HCPCS: 36415; 74018; 85610; 85730; A9270-GY; J0696; J2250; J2405; J2704; J3010